=== PATIENT | female | born 1945 | race Caucasian/White ===

== ENCOUNTER 2017-11-21 08:48 | Day surgery (SDC) | payer MEDICARE ==
[2017-11-19 10:54] VITALS: BMI 31.6
--- NOTE | 2017-11-21 04:53 | P.GSHP ---
History of Present Illness H&P Date: 11/21/17 CHIEF COMPLAINT: Colon screen HISTORY OF PRESENT ILLNESS: The patient is a 72-year-old female who presents for colon screen. Lower endoscopy was offered for further evaluation and management. PAST MEDICAL HISTORY: Please see list. PAST SURGICAL HISTORY: Please see list. MEDICATIONS: Please see list. ALLERGIES: Please see list. SOCIAL HISTORY: No illicit drug use FAMILY HISTORY: No reports of Crohn disease or ulcerative colitis. REVIEW OF ORGAN SYSTEMS: CONSTITUTIONAL: No reports of fevers or chills. PHYSICAL EXAM: VITAL SIGNS: Stable GENERAL: Well-developed pleasant in no acute distress. HEENT: No scleral icterus. Extraocular movements grossly intact. Moist buccal mucosa. NECK: Supple without lymphadenopathy. CHEST: Unlabored respirations. Equal bilateral excursions. CARDIOVASCULAR: Regular rate and rhythm. Distal 2+ pulses. ABDOMEN: Soft, nontender, nondistended. MUSCULOSKELETAL: No clubbing, cyanosis, or edema. ASSESSMENT: 1. Colon screen. PLAN: 1. Recommend proceeding with a lower endoscopy Past Medical History Past Medical History: Eye Disorder, GERD/Reflux, Hyperlipidemia, Hypertension, Osteoarthritis (OA), Sleep Apnea/CPAP/BIPAP, Thyroid Disorder Additional Past Medical History / Comment(s): Hx Diverticulitis, CPAP use, right acoustic neuroma, low thyroid. Left cataract. History of Any Multi-Drug Resistant Organisms: None Reported Past Surgical History: Cholecystectomy, Hernia Repair, Orthopedic Surgery Additional Past Surgical History / Comment(s): Bilateral total knee and hip replacements, right cataract removal, colonoscopies with colon and anal polyp removal. Past Anesthesia/Blood Transfusion Reactions: Postoperative Nausea & Vomiting ( PONV) Past Psychological History: No Psychological Hx Reported Smoking Status: Never smoker Past Alcohol Use History: Occasional Past Drug Use History: None Reported - Past Family History Mother Family Medical History: Cancer Additional Family Medical History / Comment(s): Cervical and liver cancer. Medications and Allergies Home Medications Medication Instructions Recorded Confirmed Type Lisinopril [Zestril] 10 mg PO HS 10/26/13 11/19/17 History Metoprolol Succinate (ER) [Toprol 25 mg PO QAM 10/26/13 11/19/17 History XL] B Active 1 tab PO DAILY 11/19/17 11/19/17 History Cholecalciferol (Vitamin D3) 2,000 unit PO DAILY 11/19/17 11/19/17 History [Vitamin D3] Ginkgo Biloba (Unknown Dose) 1 tab PO DAILY 11/19/17 11/19/17 History Omeprazole 20 mg PO DAILY PRN 11/19/17 11/19/17 History Allergies Allergy/AdvReac Type Severity Reaction Status Date / Time No Known Allergies Allergy Verified 11/19/17 10:36
[~2017-11-21 08:48] MED LIST: LACTATED RINGERS 1,000 ML IV SCH; LIDOCAINE 1% 20 ML VIAL (10MG/ML) FOR IV START INTRADERMA PRN; MIDAZOLAM 2 MG/2 ML VIAL IV PRN
[2017-11-21 11:31] VITALS: TEMP 97.7
[2017-11-21] MEDS ORDERED: PROPOFOL 10 MG/ML 20 ML VIAL IV ONE (12:16)
--- NOTE | 2017-11-21 12:47 | P.PCN ---
Date of Procedure: 11/21/17 Description of Procedure: PREOPERATIVE DIAGNOSIS: Colonoscopy screening. Personal history of colon polyps. POSTOPERATIVE DIAGNOSIS: Colonoscopy screening. Personal history of colon polyps. Sigmoid colon polyp External hemorrhoids, grade 2. OPERATION: Colonoscopy to the ileocecal valve and appendiceal orifice. Colonoscopy with cold forceps biopsies. SURGEON: Jackeline Griffiths MD. ANESTHESIA: MAC. INDICATIONS: The patient is a 72-year-old female who presents for colonoscopy screening. Last colonoscopy was 5 years ago. Benefits and risks were described and informed consent was obtained. DESCRIPTION OF PROCEDURE: The patient had undergone Gatorade, MiraLAX and Dulcolax prep. She had been brought into the operating room and laid in the left lateral decubitus position. After adequate intravenous sedation, the rectum was examined with 2% lidocaine jelly. No external hemorrhoids were encountered. The rectal tone was within normal limits. No lesions were palpated in the rectal vault. An Olympus colonoscope was advanced until the ileocecal valve and appendiceal orifice were clearly viewed. The prep was fair with visualization of the mucosal folds. The scope was removed with visualization of each mucosal fold. No large wide- mouth scattered diverticulosis was encountered. No evidence of focal colitis was found. The colon was desufflated. The patient had tolerated the procedure well. Withdrawal time was over 6 minutes. FINDINGS: No internal hemorrhoids No external hemorrhoids No arteriovenous malformations. No large wide-mouth scattered diverticulosis was encountered. Removal of 1 polyp: - Cold forceps biopsy at 20 cm from the anal verge, 3 mm polyp. No focal colitis. RECOMMENDATIONS: Repeat colonoscopy 5 years, 2022 Plan - Discharge Summary New Discharge Prescriptions: No Action Metoprolol Succinate (ER) [Toprol XL] 25 mg PO QAM Lisinopril [Zestril] 10 mg PO HS Omeprazole 20 mg PO DAILY PRN PRN Reason: Indigestion Ginkgo Biloba (Unknown Dose) 1 tab PO DAILY Cholecalciferol (Vitamin D3) [Vitamin D3] 2,000 unit PO DAILY B Active 1 tab PO DAILY Discharge Medication List Lisinopril [Zestril] 10 mg PO HS 10/26/13 [History] Metoprolol Succinate (ER) [Toprol XL] 25 mg PO QAM 10/26/13 [History] B Active 1 tab PO DAILY 11/19/17 [History] Cholecalciferol (Vitamin D3) [Vitamin D3] 2,000 unit PO DAILY 11/19/17 [History] Ginkgo Biloba (Unknown Dose) 1 tab PO DAILY 11/19/17 [History] Omeprazole 20 mg PO DAILY PRN 11/19/17 [History]
[2017-11-21 12:56] VITALS: RESP 16
[2017-11-21 13:06] VITALS: BP 130/80; PULSE 63
--- NOTE | 2017-11-23 06:02 | CDI ---
Date: 11/23/17 CDS/Strategic Consultant Name: Samantha Varghese Phone: If any questions, call Amira Westbrook Marketing Services Specialist at [phone] Patient Name: Chichi Mullins Admit Date: 11/21/17 Discharge Date: 11/21/17 ATTENTION: The [facility] Coding Staff appreciate your assistance in clarifying documentation. Please respond to the clarification below the line at the bottom and electronically sign. The [facility] Coding staff will review the response and follow-up if needed. Please note: Queries are made part of the Legal Health Record. If you have any questions, please contact the Marketing Services Specialist. Dear Dr. Griffiths, Please provide clarification for diagnosis of external hemorrhoids. Please clarify there were in fact external hemorroids found. On the Operative report under Postoperative Diagnosis, External hemorrhoids, grade 2 is documented. Then on the Operative report under Description of Procedure and also Findings at the bottom of the report, NO external hemorrhoids is documented. Thank you for your kind consideration. Note has been corrected to reflect NO external hemorrhoids. Thank you. VIANNEY 11/23/17 @ 13:36 ROXI
== END 2017-11-21 13:24 | disposition home or self-care (01) ==
LOC: ORWHC2ENDO 08:48
PROVIDERS: ATTEND Surgery Plastic and Reconstructive Surgery
DX: Z12.11 Encounter for screening for malignant neoplasm of colon (principal); K63.5 Polyp of colon; Z86.010 Personal history of colon polyps; K21.9 Gastro-esophageal reflux disease without esophagitis; E78.5 Hyperlipidemia, unspecified; I10 Essential (primary) hypertension; M19.90 Unspecified osteoarthritis, unspecified site; D33.3 Benign neoplasm of cranial nerves; G47.33 Obstructive sleep apnea (adult) (pediatric); Z99.89 Dependence on other enabling machines and devices; E07.9 Disorder of thyroid, unspecified
CPT/HCPCS: 88305; 45380; J2704

== ENCOUNTER → 2018-02-21 | Outpatient (CLI) | payer MEDICARE ==
--- NOTE | 2018-02-21 20:02 | CONS ---
CONSULTATION DATE OF SERVICE: 02/21/2018 This patient is a 72-year-old lady who has been evaluated in the sleep center for obstructive sleep apnea-hypopnea syndrome. HISTORY OF PRESENT ILLNESS/SLEEP-WAKE EVALUATION: Patient was diagnosed with obstructive sleep apnea more than 10 years ago. Since that time she has been on treatment with CPAP every night for the whole night. Her sleep schedule is usually from around 11 p.m. until 7 or 8 a.m. Sometimes she has problems with falling asleep, although no TV in bedroom. She sleeps usually on the side position. Even while on treatment with CPAP, she has snoring and wakes up from sleep up to 5 times with 3 episodes of nocturia. She may take several rest periods during the day. [place] Sleepiness Scale is 6. PAST MEDICAL HISTORY: 1. Hypertension. 2. Acid reflux. 3. Hyperlipidemia. PAST SURGICAL HISTORY: 1. Bilateral hip replacement. 2. Bilateral knee replacement. 3. Cholecystectomy. 4. Hernia repair. MEDICATIONS: 1. Lisinopril. 2. Metoprolol. 3. Omeprazole. SOCIAL HISTORY: Negative for smoking. Alcohol consumption occasional. FAMILY HISTORY: Hypertension, heart problems, hyperlipidemia, stroke, arthritis, snoring, cancer, liver problems, acid reflux. REVIEW OF SYSTEMS: Multiple awakenings from sleep, sometimes tiredness and sleepiness during the day. PHYSICAL EXAMINATION: GENERAL A pleasant lady without distress. VITAL SIGNS: BP 161/90, HR 66, RR 18, height 5 feet 5-1/4 inches, weight 203.2, body mass index 33.5, temperature 98.1, oxygen saturation at room air 96%. HEENT: PERRLA, EOMI. Evaluation of oropharynx showed tongue protrudes midline; low position of soft palate. Nose slightly asymmetric. Slight restriction of nasal breathing. NECK: Supple. No JVD. Thyroid is not palpable. Neck measures inches in circumference. LUNGS: Clear to percussion and to auscultation. Good air exchange. No wheezing or rhonchi. HEART: S1, S2 regular. Short systolic murmur, aorta. ABDOMEN: Obese. EXTREMITIES : No clubbing or cyanosis. PAINT SPRAY INSPECTOR: Awake, alert, and oriented X3. Cranial nerves 2 to 7 intact. There is no fasciculation or atrophy. noted. No focal deficits observed. IMPRESSION: 1. Obstructive sleep apnea-hypopnea syndrome for more than 10 years. Patient continues to use her CPAP equipment but continues snoring with the machine and has awakenings from sleep at the present time. The machine is more than 5 years old. 2. Obesity. 3. Hypertension. 4. Acid reflux. 5. Hyperlipidemia. 6. Status post bilateral hip replacement. 7. Status post bilateral knee replacement. 8. Status post cholecystectomy. 9. Status post hernia repair. PLAN: 1. Repeat CPAP titration for re-evaluation of effective CPAP pressure at the present time. 2. Patient should get new CPAP supplies, including new CPAP mask, after titration. 3. We will get results of previous sleep studies. 4. Losing weight. 5. Sleep hygiene with regular time in bed for at least 8 hours. 6. No driving if feeling any sleepiness. Thank you very much for referring this patient for consultation. Sincerely, Arash Brady MD, PhD, FAASM Diplomat of [place] [employer] [place] [employer] Manager [employer] of [facility] [place] MMODL / IJN: [id number] /
== END | disposition home or self-care (01) ==
LOC: SLEEP 14:23
PROVIDERS: ATTEND Internal Medicine
DX: G47.33 Obstructive sleep apnea (adult) (pediatric) (principal); E66.9 Obesity, unspecified; I10 Essential (primary) hypertension; K21.9 Gastro-esophageal reflux disease without esophagitis; E78.5 Hyperlipidemia, unspecified; Z96.643 Presence of artificial hip joint, bilateral; Z96.653 Presence of artificial knee joint, bilateral; Z90.49 Acquired absence of other specified parts of digestive tract; Z98.890 Other specified postprocedural states; Z79.899 Other long term (current) drug therapy; Z99.89 Dependence on other enabling machines and devices
CPT/HCPCS: 99211

== ENCOUNTER → 2018-10-24 | Outpatient (CLI) | payer MEDICARE ==
--- NOTE | 2018-10-24 16:04 | PN ---
PROGRESS NOTE DATE OF SERVICE: 10/24/2018 This patient is a 73-year-old lady who has been followed in Sleep Center for treatment of obstructive sleep apnea-hypopnea syndrome. Patient has continued to use her CPAP equipment every night for the whole night but recently developed more problems related to the machine. She wakes up with a dry mouth from sleep and sometimes feels sleepiness during the day. [place] Sleepiness Scale is 7. She wakes up from sleep up to 5 times with 3 episodes of nocturia. MEDICATIONS: 1. Lisinopril. 2. Metoprolol. 3. Omeprazole. PHYSICAL EXAMINATION: GENERAL: A pleasant patient in no distress. VITAL SIGNS: BP 131/72, HR 68, RR 16, height 5 feet 5 inches, weight 201.4 pounds, body mass index 33.4, temperature 98.1, oxygen saturation at room air 94%. HEENT: PERRLA, EOMI. Evaluation of oropharynx showed tongue protrudes midline. Low position of soft palate. NECK: Supple. No JVD. Thyroid is not palpable. LUNGS: Clear to percussion and to auscultation. Good air exchange. No wheezing or rhonchi. HEART: S1, S2 regular. No murmurs, gallops or rubs. ABDOMEN: Soft and nontender. Bowel sounds are present. No organomegaly. EXTREMITIES: No clubbing or cyanosis. HEAD MVA REACTOR OPERATOR: Awake, alert, and oriented X3. Cranial nerves 2 to 7 intact. There is no fasciculation or atrophy. noted. No focal deficits observed. IMPRESSION: 1. Obstructive sleep apnea-hypopnea syndrome. The patient has continued to use her CPAP equipment but has awakenings from sleep with snoring and dryness in the mouth. Her CPAP unit is more than 5 years old. 2. Obesity. 3. Hypertension. 4. Acid reflux. 5. Hyperlipidemia. 6. Patient recently was diagnosed with allergies. 7. Status post bilateral hip replacement. 8. Status post bilateral knee replacement. 9. Status post cholecystectomy. 10.Status post hernia repair. PLAN: 1. Repeat CPAP titration for reevaluation of effective CPAP pressure at the present time, to check fitting with mask during titration. 2. Patient will get a new CPAP unit and all necessary CPAP supplies. 3. Losing weight. 4. Sleep hygiene with regular time in bed for at least 8 hours. 5. No driving if feeling any sleepiness. Thank you very much for allowing me to participate in the management of your patient. Sincerely, Arash Brady MD, PhD, FAASM Diplomat of [place] [employer] [place] [employer] Business Attorney of [facility] [place] JAVID / SHERYL: [id number] /
== END ==
LOC: SLEEP 14:01
PROVIDERS: ATTEND Internal Medicine
DX: G47.33 Obstructive sleep apnea (adult) (pediatric) (principal); E66.9 Obesity, unspecified; I10 Essential (primary) hypertension; K21.9 Gastro-esophageal reflux disease without esophagitis; E78.5 Hyperlipidemia, unspecified; Z96.643 Presence of artificial hip joint, bilateral; Z96.653 Presence of artificial knee joint, bilateral; Z90.49 Acquired absence of other specified parts of digestive tract; Z98.890 Other specified postprocedural states; Z99.89 Dependence on other enabling machines and devices; Z79.899 Other long term (current) drug therapy; Z68.33 Body mass index [BMI] 33.0-33.9, adult

== ENCOUNTER 2018-11-13 12:48 | Observation (INO) | payer MEDICARE ==
[2018-11-13] MEDS ORDERED: SODIUM CHLORIDE 0.9% 500 ML 500 ML IV STA (13:15)
--- NOTE | 2018-11-13 13:19 | ED ---
General Adult HPI - General Source: patient, RN notes reviewed Mode of arrival: wheelchair Limitations: no limitations <Yusef Alva - Last Filed: 11/13/18 16:19> <Adrian Garcia - Last Filed: 11/13/18 17:12> - General Chief complaint: Recheck/Abnormal Lab/Rx Stated complaint: elevated BP Time Seen by Provider: 11/13/18 13:04 - History of Present Illness Initial comments: 73-year-old female presents to the emergency department for a chief complaint of hypertension. Patient states that today she started to feel somewhat short of breath and felt like she was sweating. She felt shaky as well. States she just didn't feel good overall. Denies any chest pain. States that she checked her blood pressure and it was 200/114. States that with her symptoms she became concerned and came to the emergency department. States that she feels somewhat better at this time but does still feel shaky. States that she did not have any chest pain at this time. States that she did see her doctor on Sunday and they are increasing her blood pressure medications but she has male orders so has not come in the mail yet. States she is also to have a stress test because she has more PVCs than normal. Patient has no other complaints at this time including shortness of breath, abdominal pain, nausea or vomiting, headache, or visual changes. (Yusef Alva) - Related Data Home Medications Medication Instructions Recorded Confirmed Metoprolol Succinate (ER) [Toprol 25 mg PO QAM 10/26/13 11/13/18 XL] B Active 1 tab PO DAILY 11/19/17 11/13/18 Cholecalciferol (Vitamin D3) 2,000 unit PO DAILY 11/19/17 11/13/18 [Vitamin D3] Ginkgo Biloba (Unknown Dose) 1 tab PO DAILY 11/19/17 11/13/18 Omeprazole 20 mg PO DAILY PRN 11/19/17 11/13/18 Alkolizing Goat Whey 1 cap PO DAILY 11/13/18 11/13/18 Ascorbic Acid [Vitamin C] 1,000 mg PO DAILY 11/13/18 11/13/18 Docusate [Colace] 100 mg PO DAILY 11/13/18 11/13/18 Lisinopril [Zestril] 20 mg PO DAILY 11/13/18 11/13/18 Zinc 50 mg PO DAILY 11/13/18 11/13/18 Allergies Allergy/AdvReac Type Severity Reaction Status Date / Time acetaminophen [From Lortab] Allergy Nausea & Verified 11/13/18 13:05 Vomiting hydrocodone [From Lortab] Allergy Nausea & Verified 11/13/18 13:05 Vomiting Review of Systems ROS Other: All systems not noted in ROS Statement are negative. <Yusef Alva - Last Filed: 11/13/18 16:19> ROS Other: All systems not noted in ROS Statement are negative. <Adrian Garcia - Last Filed: 11/13/18 17:12> ROS Statement: Those systems with pertinent positive or pertinent negative responses have been documented in the HPI. Past Medical History Past Medical History: Eye Disorder, GERD/Reflux, Hyperlipidemia, Hypertension, Osteoarthritis (OA), Sleep Apnea/CPAP/BIPAP, Thyroid Disorder Additional Past Medical History / Comment(s): Hx Diverticulitis, CPAP use, right acoustic neuroma, low thyroid. Left cataract. History of Any Multi-Drug Resistant Organisms: None Reported Past Surgical History: Cholecystectomy, Hernia Repair, Orthopedic Surgery Additional Past Surgical History / Comment(s): Bilateral total knee and hip replacements, right cataract removal, colonoscopies with colon and anal polyp removal. Past Anesthesia/Blood Transfusion Reactions: Postoperative Nausea & Vomiting (PONV) Past Psychological History: No Psychological Hx Reported Smoking Status: Never smoker Past Alcohol Use History: Occasional Past Drug Use History: None Reported - Past Family History Mother Family Medical History: Cancer Additional Family Medical History / Comment(s): Cervical and liver cancer. <Yusef Alva - Last Filed: 11/13/18 16:19> General Exam Limitations: no limitations General appearance: alert, in no apparent distress Head exam: Present: atraumatic, normocephalic, normal inspection Eye exam: Present: normal appearance, PERRL, EOMI. Absent: scleral icterus, conjunctival injection, periorbital swelling ENT exam: Present: normal exam, normal oropharynx, mucous membranes moist, normal external ear exam Neck exam: Present: normal inspection, full ROM. Absent: tenderness, meningismus, lymphadenopathy Respiratory exam: Present: normal lung sounds bilaterally. Absent: respiratory distress, wheezes, rales, rhonchi, stridor Cardiovascular Exam: Present: regular rate, normal rhythm, normal heart sounds. Absent: systolic murmur, diastolic murmur, rubs, gallop, clicks Neurological exam: Present: alert, oriented X3, CN II-XII intact Psychiatric exam: Present: normal affect, normal mood <Yusef Alva - Last Filed: 11/13/18 16:19> Course <Adrian Garcia - Last Filed: 11/13/18 17:12> Vital Signs 11/13/18 11/13/18 11/13/18 12:50 13:42 13:50 Temperature 98.6 F Pulse Rate 66 67 68 Respiratory 18 11 L 18 Rate Blood Pressure 171/81 127/66 O2 Sat by Pulse 95 94 L 93 L Oximetry 11/13/18 11/13/18 11/13/18 14:00 14:10 14:20 Temperature Pulse Rate 68 Respiratory 20 Rate Blood Pressure 127/66 127/66 127/66 O2 Sat by Pulse Oximetry 11/13/18 11/13/18 14:30 15:07 Temperature 97.4 F L Pulse Rate 70 70 Respiratory 18 16 Rate Blood Pressure 127/66 120/69 O2 Sat by Pulse 96 100 Oximetry - Reevaluation(s) Reevaluation #1: 11/13/18 16:37 PA supervision: I pursued a [id number] evaluation the patient did discuss the findings with her. Patient did have a 20 minute episode today of shortness of breath and diaphoresis and shaking. This is since resolved blood pressure had been elevated 200/114 no chest pain this time patient will be admitted for evaluation she does have a stress test scheduled for soon outpatient. I do agree with the assessment and plan patient will be admitted to Dr. Juarez from Dr. Hidalgo's service this is at the patient's request (Adrian Garcia) EKG Findings - EKG Comments: EKG Findings:: Sinus rhythm with occasional PVC, ventricular rate 66, MA interval 196, QTc 413, no evidence of ST elevation or depression <Yusef Alva - Last Filed: 11/13/18 16:19> Medical Decision Making - Lab Data Result diagrams: 11/13/18 13:38 11/13/18 13:38 <Yusef Alva P - Last Filed: 11/13/18 16:19> - Lab Data Result diagrams: 11/13/18 13:38 11/13/18 13:38 <Adrian Garcia - Last Filed: 11/13/18 17:12> - Medical Decision Making 73-year-old female presents for a chief complaint of hypertension. Patient states she checked her blood pressure and it was 200/114. States that she checked this because she started to feel shaky and short of breath. States that she felt like she was diaphoretic as well. States that she is supposed to be scheduled for a stress test as she has had frequent PVCs. On exam patient is well-appearing. The symptoms have resolved somewhat. CBC and CMP are unremarkable. Troponin is negative. EKG does show sinus rhythm with occasional unifocal PVCs. Chest x-ray shows chronic changes without acute pulmonary process. At this time given the patient's symptoms as well as frequent PVCs she will be admitted for cardiology consultation. (Yusef Alva) - Lab Data Lab Results 11/13/18 11/13/18 11/13/18 Range/Units 13:38 13:38 13:38 WBC 4.2 (3.8-10.6) k/uL RBC 4.95 (3.80-5.40) m/uL Hgb 14.7 (11.4-16.0) gm/dL Hct 44.1 (34.0-46.0) % MCV 89.3 (80.0-100.0) fL MCH 29.6 (25.0-35.0) pg MCHC 33.2 (31.0-37.0) g/dL RDW 14.5 (11.5-15.5) % Plt Count 184 (150-450) k/uL Neutrophils % (Manual) 69 % Lymphocytes % (Manual) 23 % Monocytes % (Manual) 7 % Eosinophils % (Manual) 1 % Neutrophils # (Manual) 2.90 (1.3-7.7) k/uL Lymphocytes # (Manual) 0.97 L (1.0-4.8) k/uL Monocytes # (Manual) 0.29 (0-1.0) k/uL Eosinophils # (Manual) 0.04 (0-0.7) k/uL Nucleated RBCs 0 (0-0) /100 WBC Anisocytosis (manual) Present PT 9.6 (9.0-12.0) sec INR 0.9 (<1.2) APTT 25.2 (22.0-30.0) sec Sodium 137 (137-145) mmol/L Potassium 4.7 (3.5-5.1) mmol/L Chloride 106 (98-107) mmol/L Carbon Dioxide 23 (22-30) mmol/L Anion Gap 8 mmol/L BUN 15 (7-17) mg/dL Creatinine 0.45 L (0.52-1.04) mg/dL Est GFR (CKD-EPI)AfAm >90 (>60 ml/min/1.73 sqM) Est GFR (CKD-EPI)NonAf >90 (>60 ml/min/1.73 sqM) Glucose 88 (74-99) mg/dL Calcium 9.3 (8.4-10.2) mg/dL Magnesium 2.1 (1.6-2.3) mg/dL Total Bilirubin 0.6 (0.2-1.3) mg/dL AST 26 (14-36) U/L ALT 18 (9-52) U/L Alkaline Phosphatase 85 (38-126) U/L Troponin I (0.000-0.034) ng/mL NT-Pro-B Natriuret Pep pg/mL Total Protein 6.6 (6.3-8.2) g/dL Albumin 3.8 (3.5-5.0) g/dL Urine Color Urine Appearance (Clear) Urine pH (5.0-8.0) Ur Specific Wallace (1.001-1.035) Urine Protein (Negative) Urine Glucose (UA) (Negative) Urine Ketones (Negative) Urine Blood (Negative) Urine Nitrite (Negative) Urine Bilirubin (Negative) Urine Urobilinogen (<2.0) mg/dL Ur Leukocyte Esterase (Negative) Urine RBC (0-5) /hpf Urine WBC (0-5) /hpf Ur Squamous Epith Cells (0-4) /hpf Urine Bacteria (None) /hpf Urine Mucus (None) /hpf 11/13/18 11/13/18 11/13/18 Range/Units 13:38 13:38 14:15 WBC (3.8-10.6) k/uL RBC (3.80-5.40) m/uL Hgb (11.4-16.0) gm/dL Hct (34.0-46.0) % MCV (80.0-100.0) fL MCH (25.0-35.0) pg MCHC (31.0-37.0) g/dL RDW (11.5-15.5) % Plt Count (150-450) k/uL Neutrophils % (Manual) % Lymphocytes % (Manual) % Monocytes % (Manual) % Eosinophils % (Manual) % Neutrophils # (Manual) (1.3-7.7) k/uL Lymphocytes # (Manual) (1.0-4.8) k/uL Monocytes # (Manual) (0-1.0) k/uL Eosinophils # (Manual) (0-0.7) k/uL Nucleated RBCs (0-0) /100 WBC Anisocytosis (manual) PT (9.0-12.0) sec INR (<1.2) APTT (22.0-30.0) sec Sodium (137-145) mmol/L Potassium (3.5-5.1) mmol/L Chloride (98-107) mmol/L Carbon Dioxide (22-30) mmol/L Anion Gap mmol/L BUN (7-17) mg/dL Creatinine (0.52-1.04) mg/dL Est GFR (CKD-EPI)AfAm (>60 ml/min/1.73 sqM) Est GFR (CKD-EPI)NonAf (>60 ml/min/1.73 sqM) Glucose (74-99) mg/dL Calcium (8.4-10.2) mg/dL Magnesium (1.6-2.3) mg/dL Total Bilirubin (0.2-1.3) mg/dL AST (14-36) U/L ALT (9-52) U/L Alkaline Phosphatase (38-126) U/L Troponin I <0.012 (0.000-0.034) ng/mL NT-Pro-B Natriuret Pep 168 pg/mL Total Protein (6.3-8.2) g/dL Albumin (3.5-5.0) g/dL Urine Color Light Yellow Urine Appearance Clear (Clear) Urine pH 6.5 (5.0-8.0) Ur Specific Wallace 1.006 (1.001-1.035) Urine Protein Negative (Negative) Urine Glucose (UA) Negative (Negative) Urine Ketones Negative (Negative) Urine Blood Negative (Negative) Urine Nitrite Negative (Negative) Urine Bilirubin Negative (Negative) Urine Urobilinogen <2.0 (<2.0) mg/dL Ur Leukocyte Esterase Small H (Negative) Urine RBC <1 (0-5) /hpf Urine WBC 1 (0-5) /hpf Ur Squamous Epith Cells 1 (0-4) /hpf Urine Bacteria Rare H (None) /hpf Urine Mucus Rare H (None) /hpf Disposition Is patient prescribed a controlled substance at d/c from ED?: No Time of Disposition: 16:20 <Yusef Alva - Last Filed: 11/13/18 16:19> <Adrian Garcia - Last Filed: 11/13/18 17:12> Clinical Impression: PVCs (premature ventricular contractions), Diaphoresis Disposition: ADMITTED IP TO THIS HOSP Condition: Fair
--- NOTE | 2018-11-13 14:03 | XR ---
EXAMINATION TYPE: XR chest 2V DATE OF EXAM: 11/13/2018 COMPARISON: Chest x-ray October 26, 2013. HISTORY: Hypertension and chest pain. TECHNIQUE: Frontal and lateral views of the chest are obtained. FINDINGS: There is chronic parenchymal change without suspicious focal air space opacity, pleural ef fusion, or pneumothorax seen. The cardiac silhouette size remains within normal limits. Overlying EK G leads are redemonstrated. Cholecystectomy clips are redemonstrated. The osseous structures remain demineralized. Scoliotic curvature in lumbar spine is partially imaged. IMPRESSION: Chronic changes without acute pulmonary process. No significant change from prior.
[2018-11-13 14:20] LABS: ALT 18 U/L (9-52); AST 26 U/L (14-36); African American GFR (CKD) >90 (>60 ml/min/1.73 sqM); Albumin 3.8 g/dL (3.5-5.0); Alkaline Phosphatase 85 U/L (38-126); Anion Gap 8 mmol/L; Blood Urea Nitrogen 15 mg/dL (7-17); Calcium 9.3 mg/dL (8.4-10.2); Carbon Dioxide 23 mmol/L (22-30); Chloride 106 mmol/L (98-107); Glucose 88 mg/dL (74-99); Magnesium 2.1 mg/dL (1.6-2.3); Potassium 4.7 mmol/L (3.5-5.1); Sodium 137 mmol/L (137-145); Total Bilirubin 0.6 mg/dL (0.2-1.3); Total Protein 6.6 g/dL (6.3-8.2)
[2018-11-13 14:25] LABS: HCT 44.1 % (34.0-46.0); HGB 14.7 gm/dL (11.4-16.0); INR 0.9 (<1.2); MCH 29.6 pg (25.0-35.0); MCHC 33.2 g/dL (31.0-37.0); MCV 89.3 fL (80.0-100.0); Mean Platelet Volume 8.7; Partial Thromboplastin Time 25.2 sec (22.0-30.0); Platelet Count 184 k/uL (150-450); Prothrombin Time 9.6 sec (9.0-12.0); RBC 4.95 m/uL (3.80-5.40); RDW 14.5 % (11.5-15.5); WBC 4.2 k/uL (3.8-10.6)
[2018-11-13 14:27] LABS: Appearance,Urine Clear (Clear); Bacteria,Urine Rare /hpf; Bilirubin,Urine Negative (Negative); Blood,Urine Negative (Negative); Color,Urine Light Yellow; Glucose,Urine (UA) Negative (Negative); Ketones,Urine Negative (Negative); Leukocyte Esterase,Urine Small (Negative); Mucus,Urine Rare /hpf; Nitrite,Urine Negative (Negative); PH, Urine 6.5 (5.0-8.0); Protein,Urine Negative (Negative); RBC,Urine <1 /hpf (0-5); Specific Gravity,Urine 1.006 (1.001-1.035); Squamous Epithelial Cell,Urine 1 /hpf (0-4); Urobilinogen,Urine <2.0 mg/dL (<2.0); WBC,Urine 1 /hpf (0-5)
[2018-11-13 14:57] LABS: Eosinophils # (M) 0.04 k/uL (0-0.7); Lymphocytes # (M) 0.97 k/uL (1.0-4.8); Monocytes # (M) 0.29 k/uL (0-1.0); Neutrophils % (M) 69 %; Nucleated Red Blood Cells 0 /100 WBC (0-0); Total Cells Counted 100
[2018-11-13 14:58] LABS: Anisocytosis (M) Present
[2018-11-13] MEDS ORDERED: NITROGLYCERIN SL TABS 0.4 MG TAB SUBLINGUAL PRN (16:20)
[2018-11-13] MEDS ORDERED: PANTOPRAZOLE 40 MG TABLET PO PRN (16:24)
[2018-11-13] MEDS: LISINOPRIL 20 MG TAB PO SCH (20:05)
[2018-11-14 07:32] LABS: Cholesterol 194 mg/dL (<200); HDL Cholesterol 61 mg/dL (40-60); LDL Cholesterol,Calculated 120 mg/dL (0-99); Triglycerides 67 mg/dL (<150)
[2018-11-14] MEDS ORDERED: LISINOPRIL 20 MG TAB PO SCH (09:00)
[2018-11-14] MEDS: ASPIRIN 325 MG TAB PO SCH (11:53)
[2018-11-14] MEDS: DOCUSATE 100 MG CAP PO SCH (11:53)
--- NOTE | 2018-11-14 12:20 | P.CRDCN ---
History of Present Illness Consult date: 11/14/18 Chief complaint: Not feeling well History of present illness: This is a 73-year-old female patient with a past medical history significant for hypertension as well as dyslipidemia presented to the hospital complaining of "not feeling well". The patient denies any specific symptoms of chest pain or chest discomfort, denies any shortness of breath with exertion, dizziness, heart racing, or syncope. She stated that she has been feeling intermittent episodes of sweating and perspiration. Overall beside that she has been feeling weak and tired lately. She was seen recently by her primary care physician who was going to schedule the patient to undergo a stress test. A dermal 4 cup, the chest x- ray did not show any acute abnormalities, the cardiac enzymes were checked and came in to be unremarkable, and the EKG showed sinus rhythm without any ischemic ST or T-wave abnormalities. I did have a discussion with the patient regarding the need to perform a stress test and echocardiogram either as an inpatient or outpatient. She would like to stay and have the stress test to be done. I am going to schedule the patient was undergo an echocardiogram later on today and stress test tomorrow morning. We'll continue following up with her. Past Medical History Past Medical History: Eye Disorder, GERD/Reflux, Hyperlipidemia, Hypertension, Osteoarthritis (OA), Sleep Apnea/CPAP/BIPAP, Thyroid Disorder Additional Past Medical History / Comment(s): Hx Diverticulitis, CPAP use, right acoustic neuroma, low thyroid. right cataract sx. History of Any Multi-Drug Resistant Organisms: None Reported Past Surgical History: Cholecystectomy, Hernia Repair, Orthopedic Surgery Additional Past Surgical History / Comment(s): Bilateral total knee and hip replacements, right cataract removal, colonoscopies with colon and anal polyp removal. Past Anesthesia/Blood Transfusion Reactions: Postoperative Nausea & Vomiting (PONV) Past Psychological History: No Psychological Hx Reported Smoking Status: Never smoker Past Alcohol Use History: Occasional Past Drug Use History: None Reported - Past Family History Mother Family Medical History: Cancer Additional Family Medical History / Comment(s): Cervical and liver cancer. Medications and Allergies Home Medications Medication Instructions Recorded Confirmed Type Metoprolol Succinate (ER) [Toprol 25 mg PO QAM 10/26/13 11/13/18 History XL] B Active 1 tab PO DAILY 11/19/17 11/13/18 History Cholecalciferol (Vitamin D3) 2,000 unit PO DAILY 11/19/17 11/13/18 History [Vitamin D3] Ginkgo Biloba (Unknown Dose) 1 tab PO DAILY 11/19/17 11/13/18 History Omeprazole 20 mg PO DAILY PRN 11/19/17 11/13/18 History Alkolizing Goat Whey 1 cap PO DAILY 11/13/18 11/13/18 History Ascorbic Acid [Vitamin C] 1,000 mg PO DAILY 11/13/18 11/13/18 History Docusate [Colace] 100 mg PO DAILY 11/13/18 11/13/18 History Lisinopril [Zestril] 20 mg PO DAILY 11/13/18 11/13/18 History Zinc 50 mg PO DAILY 11/13/18 11/13/18 History Allergies Allergy/AdvReac Type Severity Reaction Status Date / Time acetaminophen [From Lortab] Allergy Nausea & Verified 11/13/18 13:05 Vomiting hydrocodone [From Lortab] Allergy Nausea & Verified 11/13/18 13:05 Vomiting Physical Exam Vitals: Vital Signs Temp Pulse Pulse Pulse Resp BP BP 11/14/18 12:00 97.6 F 66 16 136/71 11/14/18 08:00 97.5 F L 61 16 122/71 11/14/18 04:00 97.4 F L 58 L 16 143/70 11/14/18 03:20 16 11/13/18 23:24 98.4 F 61 16 122/71 11/13/18 23:02 18 11/13/18 20:00 18 11/13/18 18:22 71 18 11/13/18 18:06 98.1 F 71 18 128/81 11/13/18 15:07 97.4 F L 70 16 120/69 11/13/18 14:30 70 18 127/66 11/13/18 14:20 68 20 127/66 11/13/18 14:10 127/66 11/13/18 14:00 127/66 11/13/18 13:50 68 18 127/66 11/13/18 13:42 67 11 L 11/13/18 12:50 98.6 F 66 18 171/81 Pulse Ox 11/14/18 12:00 93 L 11/14/18 08:00 96 11/14/18 04:00 98 11/14/18 03:20 11/13/18 23:24 94 L 11/13/18 23:02 11/13/18 20:00 11/13/18 18:22 11/13/18 18:06 94 L 11/13/18 15:07 100 11/13/18 14:30 96 11/13/18 14:20 11/13/18 14:10 11/13/18 14:00 11/13/18 13:50 93 L 11/13/18 13:42 94 L 11/13/18 12:50 95 Intake and Output 11/13/18 11/14/18 11/14/18 22:59 06:59 14:59 Other: Voiding Method Toilet Toilet Toilet # Voids 1 - Constitutional General appearance: no acute distress - Respiratory Respiratory: bilateral: CTA - Cardiovascular Rhythm: regular Heart sounds: normal: S1, S2 Abnormal Heart Sounds: systolic murmur Results 11/13/18 13:38 11/13/18 13:38 Cardiac Enzymes 11/13/18 11/13/18 11/13/18 Range/Units 13:38 13:38 19:20 AST 26 (14-36) U/L Troponin I <0.012 <0.012 (0.000-0.034) ng/mL 11/14/18 Range/Units 01:19 AST (14-36) U/L Troponin I <0.012 (0.000-0.034) ng/mL Coagulation 11/13/18 Range/Units 13:38 PT 9.6 (9.0-12.0) sec APTT 25.2 (22.0-30.0) sec Lipids 11/14/18 Range/Units 07:01 Triglycerides 67 (<150) mg/dL Cholesterol 194 (<200) mg/dL HDL Cholesterol 61 H (40-60) mg/dL CBC 11/13/18 Range/Units 13:38 WBC 4.2 (3.8-10.6) k/uL RBC 4.95 (3.80-5.40) m/uL Hgb 14.7 (11.4-16.0) gm/dL Hct 44.1 (34.0-46.0) % Plt Count 184 (150-450) k/uL Comprehensive Metabolic Panel 11/13/18 Range/Units 13:38 Sodium 137 (137-145) mmol/L Potassium 4.7 (3.5-5.1) mmol/L Chloride 106 (98-107) mmol/L Carbon Dioxide 23 (22-30) mmol/L BUN 15 (7-17) mg/dL Creatinine 0.45 L (0.52-1.04) mg/dL Glucose 88 (74-99) mg/dL Calcium 9.3 (8.4-10.2) mg/dL AST 26 (14-36) U/L ALT 18 (9-52) U/L Alkaline Phosphatase 85 (38-126) U/L Total Protein 6.6 (6.3-8.2) g/dL Albumin 3.8 (3.5-5.0) g/dL Current Medications Generic Name Dose Route Start Last Admin Trade Name Freq PRN Reason Stop Dose Admin Aminophylline 100 mg 11/15/18 06:00 Aminophylline IV 11/16/18 06:01 ONCE PRN Patient Response Aspirin 325 mg 11/14/18 09:00 11/14/18 11:53 Aspirin PO Not Given DAILY FLORENCIA Caffeine Citrate 60 mg 11/15/18 06:00 Cafcit Inj IV 11/16/18 06:01 ONCE PRN Patient Response Docusate Sodium 100 mg 11/14/18 09:00 11/14/18 11:53 Colace PO 100 mg DAILY FLORENCIA Administration Dipyridamole 51.7 mg/ Sodium 60.34 mls @ 905.1 mls/hr 11/15/18 06:00 Chloride IV 11/15/18 06:03 ONCE ONE Lisinopril 20 mg 11/13/18 21:00 11/13/18 20:05 Zestril PO 20 mg HS FLORENCIA Administration Nitroglycerin 0.4 mg 11/13/18 16:20 Nitrostat SUBLINGUAL Q5M PRN Chest Pain Pantoprazole Sodium 40 mg 11/13/18 16:24 Protonix PO AC-[id number] PRN Indigestion Intake and Output 11/13/18 11/14/18 11/14/18 22:59 06:59 14:59 Other: Voiding Method Toilet Toilet Toilet # Voids 1 11/13/18 13:38 11/13/18 13:38 Assessment and Plan Assessment: Assessment #1 generalized weakness and fatigue #2 intermittent episodes of perspiration #3 hypertension #4 dyslipidemia #5 significant family history of CAD Plan #1 acute coronary event was ruled out #2 I did recommend proceeding with a stress test #3 I did recommend proceeding with an echocardiogram #4 follow-up with the patient Thank you for allowing us participate in her care
--- NOTE | 2018-11-14 13:34 | P.HPIM ---
History of Present Illness 68-year-old admitted mainly because of elevated blood pressure patient was a not feeling well was also complaining of headache and blood pressure was 200 systolic at home although doing well here. I believe her elevated blood pressu res secondary to abnormalities admission which she may need to by anyone. Patient has on any other nonspecific symptoms because of which cardiology evaluated the patient in the recommending stress test as an outpatient. I'll obtain a TSH because of her tiredness. Will monitor her blood pressure o vernight depending on her blood pressure here will decide on discharge regimen. Patient refuses nausea vomiting patient denied any chest pain chest x-ray did not show any significant abnormality troponins are negative EKG did not show any acute ST-T wave changes patient was comparing of diaphoresis as well. Diaphoresis although improved now Review of Systems REVIEW OF SYSTEMS: CONSTITUTIONAL: No fever HEENT: No recent visual problems or hearing problems. Denied any sore throat. CARDIOVASCULAR: No chest pain, orthopnea, PND, no palpitations, no syncope. PULMONARY: No shortness of breath, no cough, no hemoptysis. GASTROINTESTINAL: No diarrhea, no nausea, no vomiting, no abdominal pain. NEUROLOGICAL: No headaches, no weakness, no numbness. HEMATOLOGICAL: Denies any bleeding or petechiae. GENITOURINARY: Denies any burning micturition, frequency, or urgency. MUSCULOSKELETAL/RHEUMATOLOGICAL: Denies any joint pain, swelling, or any muscle pain. ENDOCRINE: Denies any polyuria or polydipsia. The rest of the 14-point review of systems is negative. Past Medical History Past Medical History: Eye Disorder, GERD/Reflux, Hyperlipidemia, Hypertension, Osteoarthritis (OA), Sleep Apnea/CPAP/BIPAP, Thyroid Disorder Additional Past Medical History / Comment(s): Hx Diverticulitis, CPAP use, right acoustic neuroma, low thyroid. right cataract sx. History of Any Multi-Drug Resistant Organisms: None Reported Past Surgical History: Cholecystectomy, Hernia Repair, Orthopedic Surgery Additional Past Surgical History / Comment(s): Bilateral total knee and hip replacements, right cataract removal, colonoscopies with colon and anal polyp removal. Past Anesthesia/Blood Transfusion Reactions: Postoperative Nausea & Vomiting (PONV) Past Psychological History: No Psychological Hx Reported Smoking Status: Never smoker Past Alcohol Use History: Occasional Past Drug Use History: None Reported - Past Family History Mother Family Medical History: Cancer Additional Family Medical History / Comment(s): Cervical and liver cancer. Medications and Allergies Home Medications Medication Instructions Recorded Confirmed Type Metoprolol Succinate (ER) [Toprol 25 mg PO QAM 10/26/13 11/13/18 History XL] B Active 1 tab PO DAILY 11/19/17 11/13/18 History Cholecalciferol (Vitamin D3) 2,000 unit PO DAILY 11/19/17 11/13/18 History [Vitamin D3] Ginkgo Biloba (Unknown Dose) 1 tab PO DAILY 11/19/17 11/13/18 History Omeprazole 20 mg PO DAILY PRN 11/19/17 11/13/18 History Alkolizing Goat Whey 1 cap PO DAILY 11/13/18 11/13/18 History Ascorbic Acid [Vitamin C] 1,000 mg PO DAILY 11/13/18 11/13/18 History Docusate [Colace] 100 mg PO DAILY 11/13/18 11/13/18 History Lisinopril [Zestril] 20 mg PO DAILY 11/13/18 11/13/18 History Zinc 50 mg PO DAILY 11/13/18 11/13/18 History Allergies Allergy/AdvReac Type Severity Reaction Status Date / Time acetaminophen [From Lortab] Allergy Nausea & Verified 11/13/18 13:05 Vomiting hydrocodone [From Lortab] Allergy Nausea & Verified 11/13/18 13:05 Vomiting Physical Exam Vitals: Vital Signs Temp Pulse Pulse Pulse Resp BP BP 11/14/18 12:00 97.6 F 66 16 136/71 11/14/18 08:00 97.5 F L 61 16 122/71 11/14/18 04:00 97.4 F L 58 L 16 143/70 11/14/18 03:20 16 11/13/18 23:24 98.4 F 61 16 122/71 11/13/18 23:02 18 11/13/18 20:00 18 11/13/18 18:22 71 18 11/13/18 18:06 98.1 F 71 18 128/81 11/13/18 15:07 97.4 F L 70 16 120/69 11/13/18 14:30 70 18 127/66 11/13/18 14:20 68 20 127/66 11/13/18 14:10 127/66 11/13/18 14:00 127/66 11/13/18 13:50 68 18 127/66 11/13/18 13:42 67 11 L Pulse Ox 11/14/18 12:00 93 L 11/14/18 08:00 96 11/14/18 04:00 98 11/14/18 03:20 11/13/18 23:24 94 L 11/13/18 23:02 11/13/18 20:00 11/13/18 18:22 11/13/18 18:06 94 L 11/13/18 15:07 100 11/13/18 14:30 96 11/13/18 14:20 11/13/18 14:10 11/13/18 14:00 11/13/18 13:50 93 L 11/13/18 13:42 94 L Intake and Output 11/13/18 11/14/18 11/14/18 22:59 06:59 14:59 Other: Voiding Method Toilet Toilet Toilet # Voids 1 PHYSICAL EXAMINATION: GENERAL: The patient is alert and oriented x3, not in any acute distress. Well developed, well nourished. HEENT: Pupils are round and equally reacting to light. EOMI. No scleral icterus. No conjunctival pallor. Normocephalic, atraumatic. No pharyngeal erythema. No thyromegaly. CARDIOVASCULAR: S1 and S2 present. No murmurs, rubs, or gallops. PULMONARY: Chest is clear to auscultation, no wheezing or crackles. ABDOMEN: Soft, nontender, nondistended, normoactive bowel sounds. No palpable organomegaly. MUSCULOSKELETAL: No joint swelling or deformity. EXTREMITIES: No cyanosis, clubbing, or pedal edema. NEUROLOGICAL: Gross neurological examination did not reveal any focal deficits. SKIN: No rashes. Results CBC & Chem 7: 11/13/18 13:38 11/13/18 13:38 Labs: Abnormal Lab Results - Last 24 Hours (Table) 11/13/18 11/13/18 11/13/18 Range/Units 13:38 13:38 14:15 Lymphocytes # (Manual) 0.97 L (1.0-4.8) k/uL Creatinine 0.45 L (0.52-1.04) mg/dL LDL Cholesterol, Calc (0-99) mg/dL HDL Cholesterol (40-60) mg/dL Ur Leukocyte Esterase Small H (Negative) Urine Bacteria Rare H (None) /hpf Urine Mucus Rare H (None) /hpf 11/14/18 Range/Units 07:01 Lymphocytes # (Manual) (1.0-4.8) k/uL Creatinine (0.52-1.04) mg/dL LDL Cholesterol, Calc 120 H (0-99) mg/dL HDL Cholesterol 61 H (40-60) mg/dL Ur Leukocyte Esterase (Negative) Urine Bacteria (None) /hpf Urine Mucus (None) /hpf Thrombosis Risk Factor Assmnt - Choose All That Apply Any of the Below Risk Factors Present?: Yes Each Factor Represents 1 point: Obesity (BMI >25) Other Risk Factors: Yes Each Risk Factor Represents 3 Points: Age 75 years or older Thrombosis Risk Factor Assessment Total Risk Factor Score: 4 Thrombosis Risk Factor Assessment Level: Moderate Risk Assessment and Plan Plan: -Generalized weakness and fatigue: Etiology is not clear will obtain TSH patient is undergoing stress test as per cardiology -PVCs on EKG -Hypertension blood pressure is well controlled here will not change the regimen I do not believe that we need to change her recommending on the blood pressures during this hospital physician patient to change her BP monitoring machine and counseling regarding appropriate way to check the blood pressure was provided as well. -Hyperlipidemia -Gastroesophageal reflux disease -Sleep apnea -Hypothyroidism For above-mentioned chronic medical problems patient will be resumed on appropriate home medications DVT prophylaxis is early ambulation
--- NOTE | 2018-11-14 19:18 | ECHOF ---
Referral Reason:sob MEASUREMENTS -------- HEIGHT: 165.1 cm WEIGHT: 90.7 kg BP: 136/71 IVSd: 1.0 cm (0.6 - 1.1) LVIDd: 4.0 cm (3.9 - 5.3) LVPWd: 1.0 cm (0.6 - 1.1) IVSs: 1.4 cm LVIDs: 1.9 cm LVPWs: 1.8 cm LAESV Index (A-L): 25.55 ml/m Ao Diam: 2.8 cm (2.0 - 3.7) AV Cusp: 1.8 cm (1.5 - 2.6) LA Diam: 3.8 cm (2.7 - 3.8) MV EXCURSION: 11.800 mm (> 18.000) MV EF SLOPE: 67 mm/s (70 - 150) EPSS: 0.4 cm MV E Figueroa: 0.99 m/s MV DecT: 212 ms MV A Figueroa: 0.93 m/s MV E/A Ratio: 1.06 RAP: 5.00 mmHg RVSP: 11.42 mmHg FINDINGS -------- Sinus rhythm. This was a technically difficult study with suboptimal views. The left ventricular size is normal. Left ventricular wall thickness is normal. Overall left vent ricular systolic function is normal with, an EF between 55 - 60 %. The right ventricle is normal in size. The left atrial size is normal. The right atrial size is normal. Lumason used Interatrial and interventricular septum intact. Aortic valve is trileaflet and is mildly thickened. The mitral valve leaflets are mildly thickened. Mild mitral regurgitation is present. Mild tricuspid regurgitation present. The right ventricular systolic pressure, as measured by Doppl er, is 11.42mmHg. There is no pulmonic regurgitation present. The aortic root size is normal. IVC Not well visulized. There is no pericardial effusion. CONCLUSIONS -------- 1. Sinus rhythm. 2. This was a technically difficult study with suboptimal views. 3. The left ventricular size is normal. 4. Left ventricular wall thickness is normal. 5. Overall left ventricular systolic function is normal with, an EF between 55 - 60 %. 6. The right ventricle is normal in size. 7. The left atrial size is normal. 8. The right atrial size is normal. 9. Lumason used 10. Interatrial and interventricular septum intact. 11. Aortic valve is trileaflet and is mildly thickened. 12. The mitral valve leaflets are mildly thickened. 13. Mild mitral regurgitation is present. 14. Mild tricuspid regurgitation present. 15. The right ventricular systolic pressure, as measured by Doppler, is 11.42mmHg. 16. There is no pulmonic regurgitation present. 17. The aortic root size is normal. 18. IVC Not well visulized. 19. There is no pericardial effusion. OPEN END SPINNING OPERATOR: Joanne Hooper RDCS
[2018-11-14] MEDS: LISINOPRIL 20 MG TAB PO SCH ×2 (20:20→20:24)
[2018-11-15] MEDS ORDERED: DIPYRIDAMOLE 51.7 MG in SODIUM CHLORIDE 0.9% 50 ML IV ONE (06:00)
[2018-11-15] MEDS ORDERED: CAFFEINE CITRATE 60 MG/3 ML VIAL IV PRN (06:00)
[2018-11-15] MEDS ORDERED: AMINOPHYLLINE 500 MG/20 ML VIAL IV PRN (06:00)
--- NOTE | 2018-11-15 08:15 | P.PN ---
Progress Note - Text Progress Note Date: 11/15/18 This is a pleasant 73-year-old female patient was admitted yesterday to the hospital with feeling tired and fatigued and has low energy. No discrete symptoms of chest pain or chest discomfort. I did recommend proceeding with a stress test which is going to happen this morning. We'll continue following up with the patient.
[2018-11-15] MEDS ORDERED: METOPROLOL SUCCINATE (ER) 25 MG TAB.ER.24H PO SCH (09:00)
--- NOTE | 2018-11-15 11:26 | EST ---
EXERCISE STRESS AGE: 73 SEX: F HT: 5'5" WT: 200 lbs. PROTOCOL: Persantine Cardiolite Study HEART RATE REST: 60 BLOOD PRESSURE REST: 152/75 MAXIMUM HEART RATE ACHIEVED: 83 MAXIMUM BLOOD PRESSURE: 130/69 85% MPHR: 123 100% MPHR: 145 INDICATIONS: Abnormal EKG. CLINICAL INFORMATION: STRESS DATA: Heart rate is 60, pressure is 152/75 mmHg. Baseline EKG showed sinus mechanism. The 51.7 mg of Persantine given in 60 seconds per protocol with max heart rate was 83 beats per minute. Maximum pressure was 130/69 mmHg. Clinically, the patient did not have any symptoms of chest pain or discomfort but she did deploy episodes of nonsustained of the episode of atrial tachycardia. CONCLUSION: 1. Nondiagnostic electrocardiogram stress testing response to Persantine. 2. Please follow up on the Cardiolite portion on separate report from the Radiology Department. MMODL / IJN: [id number] /
[2018-11-15] MEDS: ASPIRIN 325 MG TAB PO SCH (11:31)
[2018-11-15] MEDS: DOCUSATE 100 MG CAP PO SCH (11:32)
--- NOTE | 2018-11-15 11:36 | NM ---
EXAMINATION TYPE: NM stress persantine cardiolit DATE OF EXAM: 11/15/2018 COMPARISON: Previous dated 10/27/2013 HISTORY: Chest pain TECHNIQUE: After the intravenous administration of 10.4 mCi Tc 99m Sestamibi - Cardiolite resting SP ECT images acquired 45 minutes post injection. The patient received 51.7 mg Persantine, 24.4 mCi Tc 99m Sestamibi - Stress images obtained 35 minute s post injection FINDINGS: Review of stress and rest SPECT images demonstrates no distinct perfusion abnormality. Gated analysi s shows normal wall motion with an estimated left ventricular ejection fraction of 64 %. IMPRESSION: No scintigraphic evidence for reversible ischemia.
[2018-11-15 12:27] VITALS: BP 131/78; PULSE 58; RESP 16; TEMP 97.7
--- NOTE | 2018-11-15 14:00 | P.DS ---
Providers Date of admission: 11/13/18 16:21 Attending physician: Lakhwinder Franco Consults: 11/13/18 16:20 Consult Physician Routine Consulting Provider: [facility] Consult Reason/Comments: PVCs, diaphoresis Do you want consulting provider notified?: Yes Primary care physician: Jose Faria [facility] Course: 68-year-old admitted mainly because of elevated blood pressure patient was a not feeling well was also complaining of headache and blood pressure was 200 systolic at home although doing well here. I believe her elevated blood pressures secondary to abnormalities admission which she may need to by anyone. Patient has on any other nonspecific symptoms because of which cardiology evaluated the patient in the recommending stress test as an outpatient. I'll obtain a TSH because of her tiredness. Will monitor her blood pressure overnight depending on her blood pressure here will decide on discharge regimen. Patient refuses nausea vomiting patient denied any chest pain chest x- ray did not show any significant abnormality troponins are negative EKG did not show any acute ST-T wave changes patient was comparing of diaphoresis as well. Diaphoresis although improved now. 11/15/2018 Patient blood pressure is not elevated during this hospitalization in fact sometimes it's actually low ideally we may need to cut down the lisinopril dose. Patient may need to buy a new blood pressure monitoring device and patient underwent stress test if that's negative patient will be discharged today. PHYSICAL EXAMINATION: GENERAL: The patient is alert and oriented x3, not in any acute distress. Well developed, well nourished. HEENT: Pupils are round and equally reacting to light. EOMI. No scleral icterus. No conjunctival pallor. Normocephalic, atraumatic. No pharyngeal erythema. No thyromegaly. CARDIOVASCULAR: S1 and S2 present. No murmurs, rubs, or gallops. PULMONARY: Chest is clear to auscultation, no wheezing or crackles. ABDOMEN: Soft, nontender, nondistended, normoactive bowel sounds. No palpable organomegaly. MUSCULOSKELETAL: No joint swelling or deformity. EXTREMITIES: No cyanosis, clubbing, or pedal edema. NEUROLOGICAL: Gross neurological examination did not reveal any focal deficits. SKIN: No rashes. Please of her dementia dictation of H&P from yesterday for further details Patient Condition at Discharge: Fair Plan - Discharge Summary Discharge Rx Participant: No New Discharge Prescriptions: Continue Metoprolol Succinate (ER) [Toprol XL] 25 mg PO QAM Omeprazole 20 mg PO DAILY PRN PRN Reason: Indigestion Ginkgo Biloba (Unknown Dose) 1 tab PO DAILY Cholecalciferol (Vitamin D3) [Vitamin D3] 2,000 unit PO DAILY B Active 1 tab PO DAILY Docusate [Colace] 100 mg PO DAILY Ascorbic Acid [Vitamin C] 1,000 mg PO DAILY Zinc 50 mg PO DAILY Lisinopril [Zestril] 20 mg PO DAILY Alkolizing Goat Whey 1 cap PO DAILY Discharge Medication List Metoprolol Succinate (ER) [Toprol XL] 25 mg PO QAM 10/26/13 [History] B Active 1 tab PO DAILY 11/19/17 [History] Cholecalciferol (Vitamin D3) [Vitamin D3] 2,000 unit PO DAILY 11/19/17 [History] Ginkgo Biloba (Unknown Dose) 1 tab PO DAILY 11/19/17 [History] Omeprazole 20 mg PO DAILY PRN 11/19/17 [History] Alkolizing Goat Whey 1 cap PO DAILY 11/13/18 [History] Ascorbic Acid [Vitamin C] 1,000 mg PO DAILY 11/13/18 [History] Docusate [Colace] 100 mg PO DAILY 11/13/18 [History] Lisinopril [Zestril] 20 mg PO DAILY 11/13/18 [History] Zinc 50 mg PO DAILY 11/13/18 [History] Follow up Appointment(s)/Referral(s): José Luis Clay MD [STAFF PHYSICIAN] - 1 Week Jose Faria MD [Primary Care Provider] - 3 Days Patient Instructions/Handouts: Chest Pain (GEN) Discharge Disposition: HOME SELF-CARE
== END 2018-11-15 14:19 | disposition home or self-care (01) ==
LOC: EC 12:48 → 1SOBS 16:21
PROVIDERS: ADMIT Internal Medicine; ATTEND Internal Medicine
DX: I10 Essential (primary) hypertension (principal); R06.02 Shortness of breath; R53.83 Other fatigue; R53.1 Weakness; R61 Generalized hyperhidrosis; K21.9 Gastro-esophageal reflux disease without esophagitis; E78.5 Hyperlipidemia, unspecified; M19.90 Unspecified osteoarthritis, unspecified site; I49.3 Ventricular premature depolarization; G47.30 Sleep apnea, unspecified; Z99.89 Dependence on other enabling machines and devices; E03.9 Hypothyroidism, unspecified; D33.3 Benign neoplasm of cranial nerves; E66.9 Obesity, unspecified; Z68.33 Body mass index [BMI] 33.0-33.9, adult; Z79.899 Other long term (current) drug therapy; Z90.49 Acquired absence of other specified parts of digestive tract; Z87.19 Personal history of other diseases of the digestive system; Z86.010 Personal history of colon polyps; Z88.8 Allergy status to other drugs, medicaments and biological substances; Z80.8 Family history of malignant neoplasm of other organs or systems; Z80.0 Family history of malignant neoplasm of digestive organs; Z82.49 Family history of ischemic heart disease and other diseases of the circulatory system
CPT/HCPCS: 96360; 99284; 36415; 93005; 93017; 83880; 80061; 80053; 84443; 83735; 84484 ×2; 85025; 85610; 85730; 81001; 71046; 78452; G0378 ×3; C8929; A9500; Q9950; 93306

== ENCOUNTER → 2019-01-30 | Outpatient (CLI) | payer MEDICARE ==
--- NOTE | 2019-01-30 12:10 | SFUN ---
SLEEP CENTER FOLLOW UP NOTE DATE OF SERVICE: 01/30/2019 This 73-year-old lady who has been followed in sleep center for treatment of obstructive sleep apnea-hypopnea syndrome. Recently, patient had CPAP titration and after that received her new CPAP unit. She likes it very much. She is using it every night for the whole night without problems. Does not snore with the machine. No daytime sleepiness. [place] Sleepiness Scale is 6, which is normal. I checked your CPAP unit, range of the pressure 5 to 12, average pressure 8.4 cm of water. Leak is 14 L/minute, which is acceptable. Patient is using a nasal mask AirFit N20 medium size. Apnea-hypopnea index only 1.0, which is absolutely perfect. Sometimes patient feels that it is too much humidity in her mask. MEDICATIONS: Lisinopril, metoprolol, omeprazole. PHYSICAL EXAMINATION: During physical exam, patient in no distress. VITAL SIGNS: BP 153/88, HR 61, RR 16, weight 202.4, temperature 98.1, oxygen saturation at room air 93%. HEENT: PERRLA, EOMI. Oropharynx low position of soft palate, Mallampati 3-4. NECK: Supple, no JVD. Thyroid is not palpable. LUNGS: Clear to percussion and to auscultation. Good air exchange. No wheezing or rhonchi. HEART: S1, S2 regular. No murmurs, gallops, or rubs. ABDOMEN: Soft and nontender. Bowel sounds are present. No organomegaly appreciated. EXTREMITIES: No clubbing or cyanosis. FISHING GUIDE: Awake, alert, and oriented X3. Cranial nerves 2 to 7 intact. There is no fasciculation or atrophy. noted. No focal deficits observed. IMPRESSION: 1. Obstructive sleep apnea-hypopnea syndrome. Patient demonstrated 100% compliance with treatment benefitting from treatment. Average pressure in the range 8.5 cm of water. 2. Hypertension. 3. Acid reflux. 4. Hyperlipidemia. 5. Allergies. 6. Status post bilateral hip replacement. 7. Status post bilateral knee replacement. 8. Status post cholecystectomy. 9. Status post hernia repair. 10.No complaints of leg movements. 11.Periodic limb movements have been documented during the sleep study, but no clinical presentation of leg movements at the present time. PLAN: 1. Patient will continue to use CPAP equipment every night for the whole night. 2. Watching and losing weight. 3. Sleep hygiene with regular time in bed for at least 7-1/2 or 8 hours. 4. No driving if feeling sleepiness. 5. I will maintain all necessary prescriptions for the mask, tube, filters. 6. Follow-up visit in 1 year or earlier if patient has any problems. 7. I will teach patient how to adjust humidity in her CPAP unit. Thank you very much for allowing me to participate in management of your patient. Sincerely, Arash Brady MD, PhD, FAASM Diplomat of [place] [employer] [place] [employer] Head Cashier of [facility] [place] MMODL / IJN: [id number] /
== END | disposition home or self-care (01) ==

== ENCOUNTER → 2019-02-25 | Outpatient (CLI) | payer MEDICARE ==
[2019-02-25 14:11] VITALS: BP 135/76; PULSE 60; RESP 16; TEMP 98.2; BMI 31.0
--- NOTE | 2019-02-25 14:25 | P.HPOB ---
History of Present Illness H&P Date: 02/25/19 Chief Complaint: The patient is here for her routine gynecologic exam. This is a 73-year-old with an LMP of 1993. The patient is here to establish with this office. She states it has been about 5 years since her last pelvic exam. She is without gynecologic complaints and denies any postmenopausal bleeding. Review of Systems She is getting about 10 pounds over the last year. She denies respiratory, cardiac and G.I. problems. She denies maltreatment or problems with falling. : she has occasional slight urinary leakage, but this is not a big problem for her.. Past Medical History Past Medical History: Eye Disorder, GERD/Reflux, Hyperlipidemia, Hypertension, Osteoarthritis (OA), Sleep Apnea/CPAP/BIPAP, Thyroid Disorder Additional Past Medical History / Comment(s): Hx Diverticulitis, CPAP use, right acoustic neuroma, low thyroid. right cataract sx. Osteoporosis status post greater than 5 years use of Fosamax in the past. 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 History of Any Multi-Drug Resistant Organisms: None Reported Past Surgical History: Cholecystectomy, Hernia Repair, Orthopedic Surgery Additional Past Surgical History / Comment(s): Bilateral total knee and hip replacements, right cataract removal, colonoscopies with colon and anal polyp removal. Last colonoscopy 2017(next after 5yrs). Inguinal and umbilical hernia repairs. 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 She spends her sun in [place]. - Past Family History Mother Family Medical History: Cancer Additional Family Medical History / Comment(s): Cervical or uterine cancer with metastases to liver. Father Family Medical History: CVA/TIA, Myocardial Infarction ([place]) Brother(s) Family Medical History: Diabetes Mellitus Medications and Allergies Home Medications Medication Instructions Recorded Confirmed Type Metoprolol Succinate (ER) [Toprol 25 mg PO QAM 10/26/13 02/25/19 History XL] Cholecalciferol (Vitamin D3) 2,000 unit PO DAILY 11/19/17 02/25/19 History [Vitamin D3] Ginkgo Biloba (Unknown Dose) 1 tab PO DAILY 11/19/17 02/25/19 History Omeprazole 20 mg PO DAILY PRN 11/19/17 02/25/19 History Alkolizing Goat Whey 1 cap PO DAILY 11/13/18 02/25/19 History Ascorbic Acid [Vitamin C] 1,000 mg PO DAILY 11/13/18 02/25/19 History Docusate [Colace] 100 mg PO DAILY 11/13/18 02/25/19 History Lisinopril [Zestril] 20 mg PO DAILY 11/13/18 02/25/19 History Zinc 50 mg PO DAILY 11/13/18 11/13/18 History Allergies Allergy/AdvReac Type Severity Reaction Status Date / Time acetaminophen [From Lortab] Allergy Nausea & Verified 02/25/19 13:04 Vomiting hydrocodone [From Lortab] Allergy Nausea & Verified 02/25/19 13:04 Vomiting Exam Vital Signs Temp Pulse Resp BP 02/25/19 13:23 98.2 F 60 16 135/76 Height 5'5", weight 204 pounds, BMI 34. This is a well-developed well-nourished white female who is alert and oriented times 3 in no acute distress. HEENT: Within normal limits. NECK: Supple without mass or thyromegaly. CHEST AND LUNGS: Clear to auscultation. HEART: Regular rate and rhythm. BREASTS: Are without mass or discharge. AXILLARY EXAM: Negative for adenopathy. BACK: Negative for CVA tenderness. ABDOMEN: Soft, nontender, without palpable masses. PELVIC EXAM: Normal external genitalia with mild to moderate atrophy. Cervix and vagina appear normal with mild atrophy. There is no unusual discharge. There is a grade 2 cystocele which increases slightly with Valsalva. There is no significant rectocele or uterine prolapse. The uterus is midposition, nongravid size and nontender. There are no palpable adnexal masses or tenderness. RECTAL EXAM: rectovaginal exam is negative for mass or tenderness and is negative for occult blood. EXTREMITIES: Nontender. IMPRESSION: 1. 73-year-old menopausal female with a grade 2-3 cystocele which is asymptomatic. 2. History of osteoporosis status post greater than 5 years use of Fosamax. PLAN: 1. Pap smear was performed. Since she is a new patient, we will do Pap smears every 2 to 3 years until 3 normal ones have been obtained, then we will consider discontinuing Pap smear testing. 2. Self breast awareness was discussed with the patient. 3. The patient would like to do her screening mammogram at [facility]. The order slip was given to the patient for this. 4. Osteoporosis management was discussed. I have stressed the importance of adequate calcium, vitamin D and regular exercise. Recommended amounts of calcium and vitamin D were also discussed. She had a bone density test done earlier this spring. I have recommended that she repeat this in 2 to 3 years. 5. She does get flu shots in the fall. She will be getting one through Dr. Faria in the near future. 6. The patient was advised to return in 1-2 years for her well woman examination.
== END ==
LOC: WWCWWP 12:47
PROVIDERS: ATTEND Obstetrics & Gynecology
DX: Z53.9 Procedure and treatment not carried out, unspecified reason (principal)

== ENCOUNTER → 2020-01-29 | Outpatient (CLI) | payer MEDICARE ==
--- NOTE | 2020-01-29 11:46 | SFUN ---
SLEEP CENTER FOLLOW UP NOTE DATE OF SERVICE: 01/29/2020 HISTORY OF PRESENT ILLNESS: This is a 74-year-old lady has been followed in Sleep Center for treatment of obstructive sleep apnea-hypopnea syndrome. The patient successfully continues to use her CPAP equipment every night. Sleeps well. Sometimes she may open her mouth. [place] Sleepiness Scale today is 6. I checked her CPAP unit, range of the pressure 5-12, average pressure 8.4 cm of water. Usage is 30/30 nights for more than 4 hours with average usage 7.3 hours per night. Apnea-hypopnea index is 1.0, which is perfect. MEDICATIONS: Lisinopril, metoprolol, omeprazole, vitamin D, C, zinc. PHYSICAL EXAMINATION: GENERAL: A pleasant patient without any distress. VITAL SIGNS: BP 137/86, HR 65, RR 16, height 5 feet 5 1/2 inches, weight 203.4, which is about the same as 1 year ago. Temperature 98.1. Oxygen saturation on room air 94%. HEENT: PERRLA, EOMI. Oropharynx low position of soft palate, Mallampati 3-4. NECK: Supple, no JVD. Thyroid is not palpable. LUNGS: Clear to percussion and to auscultation. Good air exchange. No wheezing or rhonchi. HEART: S1, S2 regular. No murmurs, gallops, or rubs. ABDOMEN: Slightly obese. Soft and nontender. Bowel sounds are present. No organomegaly appreciated. EXTREMITIES: No clubbing or cyanosis. 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 Cranial nerves 2 to 7 intact. There is no fasciculation or atrophy. noted. No focal deficits observed. IMPRESSION: 1. Obstructive sleep apnea-hypopnea syndrome. The patient demonstrated 100% compliance with treatment benefitting from treatment. 2. Hypertension. 3. Hyperlipidemia. 4. Acid reflux. 5. Allergies. 6. Status post bilateral hip replacement. 7. Status post bilateral knee replacement. 8. Status post cholecystectomy. 9. Status post hernia repair. 10.History of periodic limb movements during the sleep study. No clinical symptoms of periodic limb movements presently. PLAN: PLAN 1. Patient will continue to use PAP equipment every night for the whole night. 2. Sleep hygiene with regular time in bed for at least 7-1/2 to 8 hours. 3. Precautions related to driving. No driving if feeling sleepiness. 4. I will maintain all necessary prescription for PAP supplies including mask, tube, filters. 5. Watching weight. 6. No driving if feeling sleepiness. 7. Follow-up visit in 6 months or earlier if patient has any problems. 8. Prescription for chin strap. Thank you very much for allowing me to participate in the management of your patient. Sincerely, Arash Brady MD, PhD, FAASM Diplomat of [place] [employer] Specialties [place] [employer] Medicine Automotive Specialty Technician of [facility] [place] MMODL / THORN: [id number] /
== END | disposition home or self-care (01) ==
LOC: SLEEP 09:57
PROVIDERS: ATTEND Internal Medicine
DX: G47.33 Obstructive sleep apnea (adult) (pediatric) (principal); I10 Essential (primary) hypertension; E78.5 Hyperlipidemia, unspecified; K21.9 Gastro-esophageal reflux disease without esophagitis; Z87.39 Personal history of other diseases of the musculoskeletal system and connective tissue; Z96.643 Presence of artificial hip joint, bilateral; Z96.653 Presence of artificial knee joint, bilateral; Z90.49 Acquired absence of other specified parts of digestive tract; Z98.890 Other specified postprocedural states; T78.40XA Allergy, unspecified, initial encounter; Z79.899 Other long term (current) drug therapy

== ENCOUNTER → 2020-02-12 | Outpatient (CLI) | payer MEDICARE ==
--- NOTE | 2020-02-12 16:11 | US ---
EXAMINATION TYPE: US thyroid st tissue head/neck DATE OF EXAM: 02/12/2020 COMPARISON: NONE CLINICAL HISTORY: 74-year-old female E07.9 Disorder of thyroid gland. TECHNIQUE: Multiple sonographic images of the thyroid gland are obtained. FINDINGS: GLAND SIZE: Right Lobe: 3.9 x 1.2 x 1.3 cm Overall Parenchyma: homogenous Left Lobe: 3.5 x 0.8 x 1.5 cm Overall Parenchyma: homogeneous Isthmus Thickness: 0.2 cm NODULES RIGHT: # of nodules measured on right: 0 LEFT: # of nodules measured on left: 0 ISTHMUS: # of nodules measured in the isthmus: 0 Bilateral neck scanned, no evidence of lymphadenopathy. IMPRESSION: Unremarkable ultrasound appearance of the thyroid gland. Homogeneous parenchyma. No discrete nodule.
== END | disposition home or self-care (01) ==
LOC: RADUSWWP 14:30
PROVIDERS: ATTEND Physician Assistant
DX: E07.9 Disorder of thyroid, unspecified (principal)
CPT/HCPCS: 76536

== ENCOUNTER → 2020-03-12 | Outpatient (CLI) | payer MEDICARE ==
--- NOTE | 2020-03-12 14:52 | MR ---
EXAMINATION TYPE: MR iac wo/w con DATE OF EXAM: 03/12/2020 COMPARISON: MRI brain January 26, 2014. HISTORY: Hx of acoustic neuroma, dizziness, right-sided hearing loss. TECHNIQUE: Multiplanar, multisequence images of the brain and brainstem is performed without and with IV contras t, utilizing 9 mL intravenous Gadavist . Acoustic nerve disorder protocol. FINDINGS: Diffusion weighted images demonstrate no evidence of a recent infarct or other diffusion ab normality. There is no worrisome or extra-axial fluid collection. Mild ventricular and sulcal promin ence. Occasional scattered focus of T2 hyperintensity throughout the white matter bilaterally redemon strated. Midline structures demonstrate normal morphology. The craniocervical junction appears within normal limits. Normal vascular flow voids are present. There is 1.5 cm mucous retention cyst or polyp in the inferior right maxillary sinus redemonstrated. Remainder paranasal sinuses are clear. Globes are int act bilaterally. No suspicious fluid signal in the mastoid air cells bilaterally. There is redemonstration of heteroge neous enhancing right cerebellopontine angle mass measuring 7 x 3 mm axial image 10 consistent with k nown acoustic neuroma. No significant change current study series 801 burst prior study image 12 seri es 801. IMPRESSION: Stable right-sided acoustic neuroma. Stable mild diffuse cerebral atrophy and chronic sma ll vessel ischemic changes. No significant change from 2014 MRI.
== END | disposition home or self-care (01) ==
LOC: RADMRIMAIN 13:48
PROVIDERS: ATTEND Internal Medicine
DX: D33.3 Benign neoplasm of cranial nerves (principal); G31.9 Degenerative disease of nervous system, unspecified; I67.82 Cerebral ischemia
CPT/HCPCS: 70553; A9585

== ENCOUNTER → 2020-10-28 | Outpatient (CLI) | payer MEDICARE ==
--- NOTE | 2020-10-28 23:47 | SFUN ---
SLEEP CENTER FOLLOW UP NOTE DATE OF SERVICE: 10/28/2020 This 75-year-old lady has been followed in Sleep Center for treatment of obstructive sleep apnea-hypopnea syndrome. The patient continues to use her CPAP equipment every night and does not snore with the machine. [place] Sleepiness Scale today is 8. I checked her CPAP unit. Range of the pressure is 5 to 12 with average pressure 9.8 cm of water, usage 29/30 nights for more than 4 hours, average 7.7 hours per night. Leak is 14 L/minute, which is acceptable. Apnea-hypopnea index is 0.9, which is perfect. CURRENT MEDICATIONS: 1. Lisinopril 20 mg once a day in the evening. 2. Metoprolol 25 mg once a day in the morning. 3. Omeprazole 20 mg once a day. PHYSICAL EXAMINATION: GENERAL: A pleasant patient in no distress. VITAL SIGNS: BP 189/82, HR 70, RR 12, height 5 feet 6 inches, weight 208, body mass index 33.5, temperature 97.8, oxygen saturation at room air 95%. HEENT: PERRLA, EOMI. Evaluation of oropharynx showed tongue protrudes midline. Low position of soft palate. Mallampati III to IV. NECK: Supple. No JVD. Thyroid is not palpable. LUNGS: Clear to percussion and to auscultation. Good air exchange. No wheezing or rhonchi. HEART: S1, S2 regular. No murmurs, gallops or rubs. ABDOMEN: Slightly obese. EXTREMITIES: No clubbing or cyanosis. ENLISTED AIRCREW/AERIAL OBSERVER/GUNNER: Awake, alert, and oriented X3. Cranial nerves 2 to 7 intact. There is no fasciculation or atrophy. noted. No focal deficits observed. Patient is walking with a cane. IMPRESSION: 1. Obstructive sleep apnea-hypopnea syndrome. Patient demonstrated practically 100% compliance with treatment. Normal aspiration on CPAP therapy. 2. Hypertension; blood pressure increased in the office today. No chest pain, headache or shortness of breath. 3. History obesity. Body mass index 33.5. 4. Hyperlipidemia. 5. Acid reflux. 6. Allergies. 7. Status post bilateral hip replacement. 8. Status post bilaterally knee replacement. 9. Status post cholecystectomy. 10.Status post hernia repair. 11.History of periodic limb movements during the sleep study, but no clinical symptoms. PLAN: 1. Patient was advised to monitor her blood pressure for several days and then to discuss it with her primary care physician during follow-up visit, which she will have soon. 2. Low-sodium diet. 3. Patient will continue to use PAP equipment every night for the whole night. 4. Sleep hygiene with regular time in bed for at least 7-1/2 to 8 hours. 5. Precautions related to driving. No driving if feeling sleepiness. 6. I will maintain all necessary prescription for PAP supplies including mask, tube, filters. 7. Watching weight. 8. Follow-up visit in 6 months or earlier if patient has any problems. Thank you very much for allowing me to participate in the management of your patient. Sincerely, Arash Brady MD, PhD, FAASM Diplomat of [place] [employer] [place] [employer] General Operator of [facility] [place] [id number] / THORN: [id number] /
== END ==
LOC: SLEEP 09:55
PROVIDERS: ATTEND Internal Medicine
DX: G47.33 Obstructive sleep apnea (adult) (pediatric) (principal); I10 Essential (primary) hypertension; E78.5 Hyperlipidemia, unspecified; K21.9 Gastro-esophageal reflux disease without esophagitis; E66.9 Obesity, unspecified; Z96.653 Presence of artificial knee joint, bilateral; Z96.643 Presence of artificial hip joint, bilateral; Z90.49 Acquired absence of other specified parts of digestive tract; Z98.890 Other specified postprocedural states; Z68.33 Body mass index [BMI] 33.0-33.9, adult; Z79.899 Other long term (current) drug therapy; Z88.6 Allergy status to analgesic agent

== ENCOUNTER 2021-01-12 17:10 | Observation (INO) | payer MEDICARE ==
[2021-01-12] MEDS ORDERED: SODIUM CHLORIDE 0.9% 500 ML 500 ML IV STA (17:34)
--- NOTE | 2021-01-12 17:41 | ED ---
Chest Pain HPI - General Chief Complaint: Chest Pain Stated Complaint: Chest pressure/high BP Source: patient, RN notes reviewed, old records reviewed Mode of arrival: wheelchair Limitations: no limitations - History of Present Illness Initial Comments: 75-year-old well-appearing white female, alert and oriented 4, presents to the emergency room with complaints of epigastric pain that radiates up into her chest into the bilateral posterior neck, 2 hours ago. Patient states that she was just reading a book when it occurred. She states that the pain also caused her to have a headache. She states that symptoms lasted about half an hour but resolved on its own. She states that she has no pain at this time. The last time she had this pain was epigastric in nature but it did not radiate to her neck which is why she came to the hospital. Patient denies any fevers, cough or shortness of breath at this time. No nausea or vomiting during this episode. MD Complaint: chest pain -: hour(s) (2) Onset: during rest (While reading) Pain Location: epigastric Pain Radiation: neck (both side posterior neck) Severity scale (1-10): 0 Consistency: now resolved Worsens With: nothing Treatments Prior to Arrival: none - Related Data Home Medications Medication Instructions Recorded Confirmed Metoprolol Succinate (ER) [Toprol 25 mg PO DAILY 10/26/13 01/12/21 XL] Cholecalciferol (Vitamin D3) 50 mcg PO DAILY 11/19/17 01/12/21 [Vitamin D3] Omeprazole 20 mg PO DAILY 11/19/17 01/12/21 Ascorbic Acid [Vitamin C] 1,000 mg PO DAILY 11/13/18 01/12/21 Docusate [Colace] 100 mg PO DAILY 11/13/18 01/12/21 Zinc 50 mg PO HS 11/13/18 01/12/21 lisinopriL [Zestril] 20 mg PO HS 11/13/18 01/12/21 Azelastine HCl 1 spray EA NOSTRIL BID 01/12/21 01/12/21 Cetirizine HCl 10 mg PO HS 01/12/21 01/12/21 Prevagen 1 cap PO DAILY 01/12/21 01/12/21 Allergies Allergy/AdvReac Type Severity Reaction Status Date / Time hydrocodone [From Lortab] AdvReac Nausea & Verified 01/12/21 18:29 Vomiting Review of Systems ROS Statement: Those systems with pertinent positive or pertinent negative responses have been documented in the HPI. ROS Other: All systems not noted in ROS Statement are negative. EKG Findings - EKG Results: EKG: sinus rhythm (Ventricular rate 61, FL interval 0.214, QRS of 0.88, QTc 0.404) Past Medical History Past Medical History: Eye Disorder, GERD/Reflux, Hyperlipidemia, Hypertension, Osteoarthritis (OA), Sleep Apnea/CPAP/BIPAP, Thyroid Disorder Additional Past Medical History / Comment(s): Hx Diverticulitis, CPAP use, right acoustic neuroma, low thyroid. right cataract sx. Osteoporosis status post greater than 5 years use of Fosamax in the past. 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 History of Any Multi-Drug Resistant Organisms: None Reported Past Surgical History: Cholecystectomy, Hernia Repair, Orthopedic Surgery Additional Past Surgical History / Comment(s): Bilateral total knee and hip replacements, right cataract removal, colonoscopies with colon and anal polyp removal. Last colonoscopy 2017(next after 5yrs). Inguinal and umbilical hernia repairs. Past Anesthesia/Blood Transfusion Reactions: Postoperative Nausea & Vomiting (PONV) Past Psychological History: No Psychological Hx Reported Smoking Status: Never smoker Past Alcohol Use History: Occasional Past Drug Use History: None Reported - Past Family History Mother Family Medical History: Cancer Additional Family Medical History / Comment(s): Cervical or uterine cancer with metastases to liver. Father Family Medical History: CVA/TIA, Myocardial Infarction ([place]) Brother(s) Family Medical History: Diabetes Mellitus General Exam Limitations: no limitations General appearance: alert, in no apparent distress Head exam: Present: atraumatic, normocephalic, normal inspection Eye exam: Present: normal appearance, PERRL, EOMI. Absent: scleral icterus, conjunctival injection, periorbital swelling, periorbital tenderness Pupils: Present: normal accommodation ENT exam: Present: normal exam, normal oropharynx, mucous membranes moist, normal external ear exam Neck exam: Present: normal inspection, full ROM. Absent: tenderness, menin gismus, lymphadenopathy, thyromegaly Expanded Neck exam: Absent: tenderness, anterior neck swelling, carotid bruit, tracheal deviation Respiratory exam: Present: normal lung sounds bilaterally. Absent: respiratory distress, wheezes, rales, rhonchi, stridor, chest wall tenderness, accessory muscle use, decreased breath sounds, prolonged expiratory Cardiovascular Exam: Present: regular rate, normal rhythm, normal heart sounds. Absent: systolic murmur, diastolic murmur, rubs, gallop, clicks, JVD GI/Abdominal exam: Present: soft, normal bowel sounds, hyperactive bowel sounds. Absent: distended, tenderness, guarding, rebound, rigid, mass, hernia Extremities exam: Present: normal inspection, full ROM, normal capillary refill, other (strong Pedal pulses equal bilaterally). Absent: tenderness, pedal edema, joint swelling, calf tenderness Back exam: Present: full ROM. Absent: tenderness, CVA tenderness (R), CVA tenderness (L), muscle spasm, paraspinal tenderness, vertebral tenderness Neurological exam: Present: alert, oriented X3, CN II-XII intact Psychiatric exam: Present: normal affect, normal mood Skin exam: Present: warm, dry, intact, normal color. Absent: rash Course Vital Signs 01/12/21 17:17 Temperature 98.1 F Pulse Rate 68 Respiratory 20 Rate Blood Pressure 169/89 O2 Sat by Pulse 94 L Oximetry Chest Pain MDM - MDM CXR shows normal Heart and Mediastinum, lungs are clear. No cardiopulmonary disease. EKG shows no ST elevation, troponin is negative at 0.012. Patient states that she does still feel some chest pressure at this time. This is similar chest pressure that she had earlier today at rest. SHe does deny headache at this time. Will admit patient for unstable angina. Case discussed with Dr. Patterson Disposition Clinical Impression: Unstable angina Disposition: ADMITTED IP TO THIS [facility] Condition: Fair Referrals: Marina Wakefield MD [Primary Care Provider] - 1-2 days Decision Date: 01/12/21 Decision Time: 19:30
[2021-01-12 17:58] LABS: HCT 40.8 % (34.0-46.0); HGB 14.1 gm/dL (11.4-16.0); MCH 31.8 pg (25.0-35.0); MCHC 34.5 g/dL (31.0-37.0); MCV 92.2 fL (80.0-100.0); Mean Platelet Volume 8.4; Platelet Count 203 k/uL (150-450); RBC 4.43 m/uL (3.80-5.40); RDW 13.3 % (11.5-15.5); WBC 4.5 k/uL (3.8-10.6)
[2021-01-12 18:06] LABS: INR 0.9 (<1.2); Partial Thromboplastin Time 23.3 sec (22.0-30.0); Prothrombin Time 9.5 sec (9.0-12.0)
[2021-01-12 18:12] LABS: ALT 18 U/L (4-34); AST 29 U/L (14-36); African American GFR (CKD) >90 (>60 ml/min/1.73 sqM); Albumin 3.5 g/dL (3.5-5.0); Alkaline Phosphatase 119 U/L (38-126); Anion Gap 5 mmol/L; Blood Urea Nitrogen 11 mg/dL (7-17); Calcium 8.9 mg/dL (8.4-10.2); Carbon Dioxide 22 mmol/L (22-30); Chloride 106 mmol/L (98-107); Glucose 95 mg/dL (74-99); Magnesium 2.1 mg/dL (1.6-2.3); Non-African American GFR(CKD) >90 (>60 ml/min/1.73 sqM); Potassium 4.2 mmol/L (3.5-5.1); Sodium 133 mmol/L (137-145); Total Bilirubin 0.2 mg/dL (0.2-1.3); Total Protein 6.2 g/dL (6.3-8.2)
[2021-01-12 18:19] LABS: Appearance,Urine Clear (Clear); Bilirubin,Urine Negative (Negative); Blood,Urine Negative (Negative); Color,Urine Light Yellow; Glucose,Urine (UA) Negative (Negative); Ketones,Urine Negative (Negative); Leukocyte Esterase,Urine Moderate (Negative); Mucus,Urine Rare /hpf; Nitrite,Urine Negative (Negative); Protein,Urine Negative (Negative); RBC,Urine 1 /hpf (0-5); Specific Gravity,Urine 1.006 (1.001-1.035); Squamous Epithelial Cell,Urine 1 /hpf (0-4); Urobilinogen,Urine <2.0 mg/dL (<2.0); WBC,Urine 11 /hpf (0-5)
--- NOTE | 2021-01-12 18:39 | XR ---
EXAMINATION TYPE: XR chest 2V DATE OF EXAM: 01/12/2021 COMPARISON: 11/13/2018 HISTORY: Chest pain TECHNIQUE: FINDINGS: Heart and mediastinum are normal. Lungs are clear of infiltrate. There is no heart failure. Bony thorax is intact. IMPRESSION: No active cardiopulmonary disease. No change.
[2021-01-12 18:50] LABS: Basophils # (M) 0.09 k/uL (0-0.2); Lymphocytes # (M) 1.31 k/uL (1.0-4.8); Monocytes # (M) 0.63 k/uL (0-1.0); Neutrophils # (M) 2.03 k/uL (1.3-7.7); Neutrophils % (M) 45 %; Nucleated Red Blood Cells 0 /100 WBC (0-0); Total Cells Counted 200
[2021-01-12] MEDS ORDERED: ASPIRIN 81 MG PO STA (18:55)
[2021-01-12] MEDS ORDERED: NITROGLYCERIN SL TABS 0.4 MG TAB SUBLINGUAL PRN ×2 (19:14→19:24)
[2021-01-12] MEDS ORDERED: MELATONIN 5 MG TABLET PO PRN (20:22)
[2021-01-12] MEDS ORDERED: ACETAMINOPHEN TAB 325 MG TAB PO PRN (20:23)
--- NOTE | 2021-01-12 22:25 | P.HPIM ---
History of Present Illness H&P Date: 01/12/21 The patient is a 75-year-old female with a PMH of hypertension, obstructive sleep apnea, hypothyroidism, and GERD and hyperlipidemia who presented to the emergency room with complaints of chest discomfort. The patient reports that she noticed mild substernal discomfort shortly after waking up this morning. She reports that the pain was maybe a 1-2 out of 10, and that she did not pay much attention to it. The pain then worsened acutely 2 hours prior to arrival, 5 out of 10 at maximal intensity, constant, without alleviating or exacerbating features, radiating up to his neck. At time of interview, the patient reports that she continues to have 1 out of 10 substernal discomfort. She denied experiencing associated shortness of breath, nausea, dizziness, or diaphoresis. She denied lower extremity edema or pain. Also denied prolonged immobilization or recent travel. Further denied fever, chills, cough, abdominal pain, diarrhea. Denied weakness, numbness, tingling, headaches. She underwent an extensive evaluation in the emergency room with an EKG showing sinus rhythm with first-degree AV block at 61 bpm. Chest x-ray was unremarkable. Laboratory evaluation revealed a troponin of less than 0.012. Review of systems: Pertinent positives and negatives as discussed in HPI, a complete review of systems was performed and all other systems are negative. Physical examination: General: non toxic, no distress, appears at stated age, obese Derm: no unusual rashes/lesions no unusual ecchymoses, warm, dry Head: atraumatic, normocephalic, symmetric Eyes: EOMI, no lid lag, anicteric sclera, pupils equal round reactive to light ENT: Nose and ears atraumatic, no thrush, no pharyngeal erythema Neck: No thyromegaly, no cervical lymphadenopathy, trachea midline, supple Mouth: no lip lesion, mucus membranes moist Cardiovascular: S1S2 reg, no murmur, positive posterior tibial pulse bilateral, no edema, capillary refill less than 2 seconds, no chest wall tenderness Lungs: CTA bilateral, no rhonchi, no rales , no accessory muscle use Abdominal: soft, nontender to palpation, no guarding, no appreciable organomegaly, normal bowel sounds Ext: no gross muscle atrophy, muscle strength 5 out of 5 in all 4 extremities grossly, no contractures, Neuro: CN II-XI grossly intact, light touch intact all 4 extremities, finger to nose within normal limits, Psych: Alert, oriented, appropriate affect Assessment/plan Atypical Chest pain, rule out ACS -Cardiology consult -Trend troponin -Cardiac monitoring -Continue with aspirin Chronic conditions: Hypertension, hyperlipidemia, GERD -Continue with home meds DVT prophylaxis -Heparin subq The patient is admitted with an anticipated less than 2 midnight stay for evaluation of chest pain. CODE STATUS:Full Code Discussed with: Patient Anticipated discharge date: in am Anticipated discharge place: Home Past Medical History Past Medical History: Eye Disorder, GERD/Reflux, Hyperlipidemia, Hypertension, Osteoarthritis (OA), Sleep Apnea/CPAP/BIPAP, Thyroid Disorder Additional Past Medical History / Comment(s): Hx Diverticulitis, CPAP use, right acoustic neuroma, low thyroid. right cataract sx. Osteoporosis status post greater than 5 years use of Fosamax in the past. PAST MECHANIC HISTORY: She has no history of STDs. History of Any Multi-Drug Resistant Organisms: None Reported Past Surgical History: Cholecystectomy, Hernia Repair, Orthopedic Surgery Additional Past Surgical History / Comment(s): Bilateral total knee and hip replacements, right cataract removal, colonoscopies with colon and anal polyp removal. Last colonoscopy 2017(next after 5yrs). Inguinal and umbilical hernia repairs. Past Anesthesia/Blood Transfusion Reactions: Postoperative Nausea & Vomiting (PONV) Past Psychological History: No Psychological Hx Reported Smoking Status: Never smoker Past Alcohol Use History: Occasional Past Drug Use History: None Reported - Past Family History Mother Family Medical History: Cancer Additional Family Medical History / Comment(s): Cervical or uterine cancer with metastases to liver. Father Family Medical History: CVA/TIA, Myocardial Infarction ([place]) Brother(s) Family Medical History: Diabetes Mellitus Medications and Allergies Home Medications Medication Instructions Recorded Confirmed Type Metoprolol Succinate (ER) [Toprol 25 mg PO DAILY 10/26/13 01/12/21 History XL] Cholecalciferol (Vitamin D3) 50 mcg PO DAILY 11/19/17 01/12/21 History [Vitamin D3] Omeprazole 20 mg PO DAILY 11/19/17 01/12/21 History Ascorbic Acid [Vitamin C] 1,000 mg PO DAILY 11/13/18 01/12/21 History Docusate [Colace] 100 mg PO DAILY 11/13/18 01/12/21 History Zinc 50 mg PO HS 11/13/18 01/12/21 History lisinopriL [Zestril] 20 mg PO HS 11/13/18 01/12/21 History Azelastine HCl 1 spray EA NOSTRIL BID 01/12/21 01/12/21 History Cetirizine HCl 10 mg PO HS 01/12/21 01/12/21 History Prevagen 1 cap PO DAILY 01/12/21 01/12/21 History Allergies Allergy/AdvReac Type Severity Reaction Status Date / Time hydrocodone [From Lortab] AdvReac Nausea & Verified 01/12/21 18:29 Vomiting Physical Exam Vitals: Vital Signs Temp Pulse Resp BP Pulse Ox 01/12/21 20:00 58 L 17 138/78 01/12/21 19:00 63 39 H 01/12/21 18:00 80 35 H 01/12/21 17:28 70 16 01/12/21 17:17 98.1 F 68 20 169/89 94 L Intake and Output 01/12/21 01/12/21 01/12/21 06:59 14:59 22:59 Other: Weight 90.718 kg Results CBC & Chem 7: 01/12/21 17:50 01/12/21 17:50 Labs: Abnormal Lab Results - Last 24 Hours (Table) 01/12/21 01/12/21 Range/Units 17:50 17:50 Sodium 133 L (137-145) mmol/L Creatinine 0.41 L (0.52-1.04) mg/dL Total Protein 6.2 L (6.3-8.2) g/dL Ur Leukocyte Esterase Moderate H (Negative) Urine WBC 11 H (0-5) /hpf Urine Mucus Rare H (None) /hpf
[2021-01-13] MEDS: HEPARIN SODIUM,PORCINE/PF 5,000 UNIT/0.5 ML SYRINGE SQ SCH ×3 (01:47→17:02)
[2021-01-13] MEDS ORDERED: ASCORBIC ACID 500 MG TAB PO SCH (09:00)
[2021-01-13] MEDS ORDERED: AZELASTINE 137MCG/SPRAY EA NOSTRIL SCH (09:00)
[2021-01-13] MEDS ORDERED: DOCUSATE 100 MG CAP PO SCH (09:00)
[2021-01-13] MEDS ORDERED: METOPROLOL SUCCINATE (ER) 25 MG TAB.ER.24H PO SCH (09:00)
[2021-01-13] MEDS ORDERED: CHOLECALCIFEROL 25 MCG (1000 IU) TABLET PO SCH (09:00)
[2021-01-13] MEDS ORDERED: NON FORMULARY DRUG (Prevagen 1 CAP) PO SCH (09:00)
[2021-01-13] MEDS ORDERED: ASPIRIN 325 MG TAB PO SCH (09:00)
[2021-01-13] MEDS ORDERED: PANTOPRAZOLE 40 MG TABLET PO SCH (09:00)
[2021-01-13] MEDS ORDERED: REGADENOSON 0.4 MG/5 ML SYRINGE IV PRN (09:27)
[2021-01-13] MEDS ORDERED: AMINOPHYLLINE 500 MG/20 ML VIAL IV PRN (09:27)
[2021-01-13] MEDS ORDERED: CAFFEINE CITRATE 60 MG/3 ML VIAL IV PRN (09:27)
--- NOTE | 2021-01-13 09:50 | CONS ---
CONSULTATION HISTORY OF PRESENT ILLNESS: Mrs. Mullins is a 75-year-old female with known history of hypertension, history of hyperlipidemia, who presented to the emergency room with symptoms of chest discomfort. She had some discomfort yesterday and subsequently while sitting, she had chest heaviness and radiating to the back of the neck. It occurred at rest and was on and off three times, each one lasting for 15-30 minutes. Because of that, she came into the emergency room to be further evaluated. The patient is average in exercise tolerance, has no history of obstructive coronary disease or congestive heart failure. She has been followed by Dr. Clay on a regular basis. She has underwent a myocardial perfusion imaging in November 2018 and at that time there was no evidence of stress-induced ischemia. The patient has no dizziness. No palpitation. No clear PND, orthopnea, or peripheral edema. Her coronary risk factors are remarkable for the history of hypertension, hyperlipidemia. She is nonsmoker. MEDICATIONS: Include Zestril 20 mg daily, omeprazole 20 mg daily, metoprolol succinate 25 mg daily, , and vitamin C. REVIEW OF SYSTEMS: RESPIRATORY SYSTEM: She has no documented history of asthma, emphysema. She has occasional cough. GI system: No recent GI bleeding. No peptic ulcer disease. system: No dysuria or hematuria. NERVOUS SYSTEM: No history of stroke or seizure. PHYSICAL EXAMINATION: 75-year-old female, alert, oriented, in no apparent distress. Blood pressure 122/70 with a heart rate in the 60s. HEAD: Normocephalic. Eyes sclerae anicteric. NECK: Good carotid upstroke. No bruit. No jugular venous distention. LUNGS: Clear to auscultation. HEART: Regular rate and rhythm. S1, S2. No S3 with systolic murmur, ejection type heard at the base with an early diastolic murmur. No rub. ABDOMEN: Soft, nontender. Positive bowel sounds. No organomegaly. EXTREMITIES: No edema. Intact distal pulses. LAB DATA: Lab data revealed troponin less than 0.012 for 3 samples. BUN and creatinine of 11 and 0.41, hemoglobin of 14.1. EKG revealed a sinus mechanism with a normal axis, first- degree AV block. No acute changes. IMPRESSION: 1. Chest heaviness of unclear etiology, has atypical features for ischemic heart disease. 2. History of hypertension. 3. History of hyperlipidemia. RECOMMENDATIONS: From the cardiac standpoint, I would recommend to proceed with myocardial perfusion imaging. Patient had a myocardial perfusion imaging done in 2019. At that time, there was no evidence of stress-induced ischemia and her left ventricular systolic function at that time was preserved. Depending on the results of testing, further recommendations will be made. Thank you for this consult. We will follow with you. LUIZL / IJN: [id number] /
[2021-01-13 10:38] LABS: Chol/HDL Ratio 3.08; LDL Cholesterol,Calculated 117.8 mg/dL (0.0-131.0); VLDL Calculation 19.2 mg/dL (5.00-40.00)
[2021-01-13 10:54] VITALS: RESP 16
--- NOTE | 2021-01-13 13:43 | ECHOF ---
Referral Reason:CP MEASUREMENTS -------- HEIGHT: 165.1 cm WEIGHT: 90.7 kg BP: 122/74 RVIDd: 3.2 cm (< 3.3) IVSd: 1.3 cm (0.6 - 1.1) LVIDd: 3.7 cm (3.9 - 5.3) LVPWd: 1.1 cm (0.6 - 1.1) IVSs: 1.7 cm LVIDs: 2.5 cm LVPWs: 1.4 cm LA Diam: 3.8 cm (2.7 - 3.8) Ao Diam: 2.8 cm (2.0 - 3.7) AV Cusp: 2.0 cm (1.5 - 2.6) MV EXCURSION: 11.063 mm (> 18.000) MV EF SLOPE: 50 mm/s (70 - 150) EPSS: 0.3 cm MV E Figueroa: 1.14 m/s MV DecT: 201 ms MV A Figueroa: 0.93 m/s MV E/A Ratio: 1.22 FINDINGS -------- Sinus rhythm. This was a technically adequate study. The left ventricular size is normal. There is mild concentric left ventricular hypertrophy. Overa ll left ventricular systolic function is normal with, an EF between 55 - 60 %. The right ventricle is normal in size. The left atrium is normal in size. The right atrial size is normal. Interatrial and interventricular septum intact. There is mild aortic valve sclerosis. Mild mitral annular calcification present. Mild mitral regurgitation is present. The tricuspid valve appears structurally normal. Trace tricuspid regurgitation present. Unable to estimate RVSP due to inadequate TR jet spectral doppler profile. Trace/mild (physiologic) pulmonic regurgitation. The aortic root size is normal. Normal inferior vena cava with normal inspiratory collapse consistent with estimated right atrial pre ssure of 5 mmHg. There is no pericardial effusion. CONCLUSIONS -------- 1. There is mild concentric left ventricular hypertrophy. 2. Overall left ventricular systolic function is normal with, an EF between 55 - 60 %. 3. The left atrium is normal in size. 4. There is mild aortic valve sclerosis. 5. Mild mitral annular calcification present. 6. Mild mitral regurgitation is present. 7. Trace/mild (physiologic) pulmonic regurgitation. 8. There is no pericardial effusion. CAN LINE OPERATOR: Katiuska Gonzalez RDCS
[2021-01-13 14:52] VITALS: BP 137/79; PULSE 62; TEMP 97.4
--- NOTE | 2021-01-13 14:52 | NM ---
EXAMINATION TYPE: NM stress lexiscan cardiolite DATE OF EXAM: 01/13/2021 COMPARISON: 11/15/2018 HISTORY: Chest pain TECHNIQUE: After the intravenous administration of 9.2 mCi Tc 99m Sestamibi - Cardiolite resting SPE CT images acquired 45 minutes post injection. At peak stress 24.8 mCi Tc 99m Sestamibi - Stress images obtained 30 minutes post injection The patient was stressed with 0.4mg Lexiscan. FINDINGS: No fixed defects are evident No reversible stress defects on Spect images. Wall motion is normal. Ejection fraction is calculated to be 66 %. IMPRESSION: 1. Normal stress myocardial study. 2 no stress-induced ischemic changes.
--- NOTE | 2021-01-13 16:17 | P.DS ---
Providers Date of admission: 01/12/21 19:10 Expected date of discharge: 01/13/21 Attending physician: Elias Mcclendon MD Consults: 01/12/21 19:24 Consult Physician Urgent Consulting Provider: José Luis Clay Consult Reason/Comments: ua Do you want consulting provider notified?: Yes, Notify in am Primary care physician: Marina Wakefield MD Hospital Course: This is a 75-year-old female with past medical history significant for essential hypertension and hyperlipidemia who presented to the emergency room with chest discomfort. Patient was evaluated in the ER and twelve-lead EKG showed no acute ischemic changes. She was placed on observation and serial troponin remained negative 3 sets. ACS was ruled out. Patient was seen and evaluated by cardiology. She underwent a Lexiscan cardiac stress test that was normal. She was cleared by cardiology for discharge. She was seen and evaluated by me on the day of discharge. She was chest pain-free. She'll be discharged home in a stable condition. General: The patient is awake and alert, in no distress Eye: there is normal conjunctiva bilaterally. Neck: The neck is supple, there is no JVD. Cardiovascular: Normal S1-S2, no S3-S4, no murmurs. Respiratory: Lungs clear to auscultation bilaterally Gastrointestinal: Abdomen is soft, nontender Musculoskeletal: There is no pedal edema. Neurological:. Speech is normal. Skin: Skin is warm and dry Patient Condition at Discharge: Fair Plan - Discharge Summary Discharge Rx Participant: No New Discharge Prescriptions: Continue Metoprolol Succinate (ER) [Toprol XL] 25 mg PO DAILY Omeprazole 20 mg PO DAILY Cholecalciferol (Vitamin D3) [Vitamin D3] 50 mcg PO DAILY Docusate [Colace] 100 mg PO DAILY Ascorbic Acid [Vitamin C] 1,000 mg PO DAILY Zinc 50 mg PO HS lisinopriL [Zestril] 20 mg PO HS Azelastine HCl 1 spray EA NOSTRIL BID Cetirizine HCl 10 mg PO HS Prevagen 1 cap PO DAILY Discharge Medication List Metoprolol Succinate (ER) [Toprol XL] 25 mg PO DAILY 10/26/13 [History] Cholecalciferol (Vitamin D3) [Vitamin D3] 50 mcg PO DAILY 11/19/17 [History] Omeprazole 20 mg PO DAILY 11/19/17 [History] Ascorbic Acid [Vitamin C] 1,000 mg PO DAILY 11/13/18 [History] Docusate [Colace] 100 mg PO DAILY 11/13/18 [History] Zinc 50 mg PO HS 11/13/18 [History] lisinopriL [Zestril] 20 mg PO HS 11/13/18 [History] Azelastine HCl 1 spray EA NOSTRIL BID 01/12/21 [History] Cetirizine HCl 10 mg PO HS 01/12/21 [History] Prevagen 1 cap PO DAILY 01/12/21 [History] Follow up Appointment(s)/Referral(s): Marina Wakefield MD [Primary Care Provider] - 1-2 days Discharge Disposition: HOME SELF-CARE
--- NOTE | 2021-01-13 16:37 | EST ---
EXERCISE STRESS AGE: 75 SEX: F HT: 5'5" WT: 200 lbs. PROTOCOL: Lexiscan STAGE: NA DURATION OF EXERCISE: NA HEART RATE REST: 58 BLOOD PRESSURE REST: 128/79 MAXIMUM HEART RATE ACHIEVED: 89 MAXIMUM BLOOD PRESSURE: 144/69 85% MPHR: 122 100% MPHR: 143 METS: NA INDICATIONS: Chest pain CLINICAL INFORMATION: Baseline rhythm is sinus mechanism, rate 58, normal axis and intervals. Normal echocardiogram. Baseline blood pressure 128/79 mmHg. Patient received injection of Lexiscan. Electrocardiograph monitoring revealed a [address]-segment depression. Cardiolite was injected per protocol. CONCLUSION: 1. Borderline positive electrocardiograph response to Lexiscan infusion. 2. Nuclear images will be reported separately. MMODL / IJN: [id number] /
[2021-01-13] MEDS ORDERED: LORATADINE 10 MG TAB PO SCH (21:00)
[2021-01-13] MEDS ORDERED: lisinopriL 20 MG TAB PO SCH (21:00)
[2021-01-13] MEDS ORDERED: ZINC SULFATE 220 MG CAP PO SCH (21:00)
[2021-01-14] MEDS ORDERED: ASPIRIN 81 MG PO SCH (09:00)
== END 2021-01-13 17:00 | disposition home or self-care (01) ==
LOC: EC 17:10 → 1SOBS 19:10 → 6NMEDSUR 20:51
PROVIDERS: ADMIT Internal Medicine; ATTEND Internal Medicine
DX: R07.89 Other chest pain (principal); I10 Essential (primary) hypertension; I44.30 Unspecified atrioventricular block; I08.0 Rheumatic disorders of both mitral and aortic valves; R10.13 Epigastric pain; R51.9 Headache, unspecified; E78.5 Hyperlipidemia, unspecified; E03.9 Hypothyroidism, unspecified; G47.33 Obstructive sleep apnea (adult) (pediatric); D33.3 Benign neoplasm of cranial nerves; K21.9 Gastro-esophageal reflux disease without esophagitis; M19.90 Unspecified osteoarthritis, unspecified site; K57.90 Diverticulosis of intestine, part unspecified, without perforation or abscess without bleeding; M81.0 Age-related osteoporosis without current pathological fracture; Z79.899 Other long term (current) drug therapy; Z88.5 Allergy status to narcotic agent; Z96.643 Presence of artificial hip joint, bilateral; Z96.653 Presence of artificial knee joint, bilateral; Z86.010 Personal history of colon polyps; Z87.19 Personal history of other diseases of the digestive system; Z90.49 Acquired absence of other specified parts of digestive tract; Z98.41 Cataract extraction status, right eye; Z98.890 Other specified postprocedural states; Z80.49 Family history of malignant neoplasm of other genital organs; Z82.49 Family history of ischemic heart disease and other diseases of the circulatory system; Z83.3 Family history of diabetes mellitus; Z82.3 Family history of stroke
CPT/HCPCS: 96372; 99285; 36415; 93005 ×2; 93017; 93306; 80061; 80053; 83735; 84484 ×2; 85025; 85610; 85730; 81001; 87086; 71046; 78452; G0378 ×3; A9500; J2785; J1644

== ENCOUNTER → 2021-12-08 | Outpatient (CLI) | payer MEDICARE ==
--- NOTE | 2021-12-08 12:38 | P.PN ---
Subjective DATE: 12/08/2021 FOLLOW UP VISIT. Patient with obstructive sleep apnea hypopnea syndrome return to sleep center for follow-up visit. Patient is using PAP equipment every night for the whole night, getting PAP supplies in time. The patient does not have significant problems with the mask, PAP unit and humidification. [place] sleepiness scale is 3. I checked PAP unit. PAP unit pressure 5-12, average 10 cm H2O. Usage is 100 % for more then 4 hours, average 7.6 hours per night. Leak is 14 l/m, which is in acceptable range. Apnea Hypopnea Index is 0.6, which is normal. MEDICATIONS:1. Lisinopril 20 mg once a day 2. Toprol 25 mg once a day 3. Omeprazole 20 mg on when necessary basis 4. Prolia twice a year During physical exam: GENERAL: A pleasant patient without any distress. VITAL SIGNS: BP 173/74, HR 68, RR 12, weight 194.6, temperature 97.4, height 5 foot 6 inches, body mass index 32.2, oxygen saturation at room air 97%. HEENT: PERRLA, EOMI.low position of soft palate, Mallapati 34. NECK: Supple. No JVD. LUNGS: Clear to percussion and to auscultation. Good air exchange. No wheezing or rhonchi. HEART: S1, S2 regular. ABDOMEN: Soft and nontender.[] EXTREMITIES: No clubbing or cyanosis. NEON PUMPER: Awake, alert, and oriented x3. No focal deficit. Impressions: 1. Obstructive sleep apnea-hypopnea syndrome. Patient demonstrated great compliance with treatment, benefiting from treatment. 2. Hypertension. 3. Obesity patient lost 14 pounds since previous visit. 4. Hyperlipidemia. 5. Acid reflux. 6. History of ALLERGY. 7. Status post bilateral knee replacement. 8. Status post bilateral heap replacement. 9. Status post cholecystectomy. 10 history of periodic limb movements, no clinical symptoms at the present time 11. Status post hernia repair. Plan: 1. Continue using PAP equipment every night for the whole night. 2. To change air filter at least 1-2 times per month. 3. PAP unit should stay lower then position of the head. 4. Advised patient to remove all remaining water from humidifier canister daily and make it dry after each usage. Refill canister with fresh distilled water before each usage. 5. Sleep hygiene with regular time in bed for at least 8 hours. 6. Precautions related to driving. No driving if feel any sleepiness. 7. I will maintain prescription for PAP supplies including mask, tube, filters. 8. Follow up visit in 12 months or earlier if patient has any problems. 9. Watching weight. Thank you very much for allowing me to participate in the management of your patient. Arash Brady MD, PhD, FAASM. Diplomat of [place] [employer], Sleep Medicine Board by [employer] [facility] [place]
== END ==
LOC: SLEEP 11:23
PROVIDERS: ATTEND Internal Medicine
DX: G47.33 Obstructive sleep apnea (adult) (pediatric) (principal); I10 Essential (primary) hypertension; E66.9 Obesity, unspecified; E78.5 Hyperlipidemia, unspecified; K21.9 Gastro-esophageal reflux disease without esophagitis; Z87.09 Personal history of other diseases of the respiratory system; Z96.653 Presence of artificial knee joint, bilateral; Z96.643 Presence of artificial hip joint, bilateral; Z90.49 Acquired absence of other specified parts of digestive tract; Z98.890 Other specified postprocedural states; G47.61 Periodic limb movement disorder; Z68.32 Body mass index [BMI] 32.0-32.9, adult; Z79.899 Other long term (current) drug therapy; Z88.5 Allergy status to narcotic agent

== ENCOUNTER 2021-12-21 10:18 | Day surgery (SDC) | payer MEDICARE ==
[2021-12-19 12:28] VITALS: BMI 31.6
--- NOTE | 2021-12-21 07:41 | P.GSHP ---
History of Present Illness H&P Date: 12/21/21 CHIEF COMPLAINT: GERD and colon screen HISTORY OF PRESENT ILLNESS: The patient is a 76-year-old female who presents with gastroesophageal reflux disease and need for colon screen. Upper and lower endoscopy were offered for further evaluation and management. PAST MEDICAL HISTORY: Please see list. PAST SURGICAL HISTORY: Please see list. MEDICATIONS: Please see list. ALLERGIES: Please see list. SOCIAL HISTORY: No illicit drug use FAMILY HISTORY: No reports of Crohn disease or ulcerative colitis. REVIEW OF ORGAN SYSTEMS: CONSTITUTIONAL: No reports of fevers or chills. GI: Denies any blood in stools or constipation. PHYSICAL EXAM: VITAL SIGNS: Stable GENERAL: Well-developed pleasant in no acute distress. HEENT: No scleral icterus. Extraocular movements grossly intact. Moist buccal mucosa. NECK: Supple without lymphadenopathy. CHEST: Unlabored respirations. Equal bilateral excursions. CARDIOVASCULAR: Regular rate and rhythm. Distal 2+ pulses. ABDOMEN: Soft, nondistended. MUSCULOSKELETAL: No clubbing, cyanosis, or edema. ASSESSMENT: 1. Gastroesophageal reflux disease 2. Colon screen. PLAN: 1. Recommend proceeding with an upper and lower endoscopy Past Medical History Past Medical History: Eye Disorder, GERD/Reflux, Hyperlipidemia, Hypertension, Osteoarthritis (OA), Sleep Apnea/CPAP/BIPAP, Thyroid Disorder Additional Past Medical History / Comment(s): Hx Diverticulitis, CPAP use, right acoustic neuroma, low thyroid. Osteoporosis. History of Any Multi-Drug Resistant Organisms: None Reported Past Surgical History: Cholecystectomy, Hernia Repair, Orthopedic Surgery Additional Past Surgical History / Comment(s): Bilateral total knee and hip replacements, right cataract removal, colonoscopies with colon and anal polyp removal. Inguinal and umbilical hernia repairs. Past Anesthesia/Blood Transfusion Reactions: Postoperative Nausea & Vomiting (PONV) Past Psychological History: Anxiety Smoking Status: Never smoker Past Alcohol Use History: Occasional Past Drug Use History: None Reported - Past Family History Mother Family Medical History: Cancer Additional Family Medical History / Comment(s): Cervical or uterine cancer with metastases to liver. Father Family Medical History: CVA/TIA, Myocardial Infarction ([place]) Brother(s) Family Medical History: Diabetes Mellitus Medications and Allergies Home Medications Medication Instructions Recorded Confirmed Type Metoprolol Succinate (ER) [Toprol 50 mg PO DAILY 10/26/13 12/19/21 History XL] Cholecalciferol (Vitamin D3) 50 mcg PO DAILY 11/19/17 12/19/21 History [Vitamin D3] Omeprazole 20 mg PO DAILY PRN 11/19/17 12/19/21 History Ascorbic Acid [Vitamin C] 1,000 mg PO DAILY 11/13/18 12/19/21 History Zinc 50 mg PO HS 11/13/18 12/19/21 History lisinopriL [Zestril] 20 mg PO HS 11/13/18 12/19/21 History Prevagen 1 cap PO DAILY 01/12/21 12/19/21 History Denosumab [Prolia] 120 mg SQ DIRECTED 12/19/21 12/19/21 History hydrOXYzine HCL [Hydroxyzine HCl] 10 mg PO DAILY 12/19/21 12/19/21 History Allergies Allergy/AdvReac Type Severity Reaction Status Date / Time hydrocodone [From Lortab] AdvReac Nausea & Verified 12/19/21 12:18 Vomiting
[~2021-12-21 10:18] MED LIST changes: -LIDOCAINE 1% 20 ML VIAL (10MG/ML) FOR IV START INTRADERMA PRN; -MIDAZOLAM 2 MG/2 ML VIAL IV PRN
[2021-12-21 10:39] VITALS: TEMP 98.5
[2021-12-21] MEDS ORDERED: PROPOFOL 10 MG/ML 20 ML VIAL IV ONE (11:20)
[2021-12-21] MEDS ORDERED: LIDOCAINE 2% INJ 20 MG/ML (2 ML VIAL) ONE (11:20)
--- NOTE | 2021-12-21 11:36 | P.PCN ---
Date of Procedure: 12/21/21 Description of Procedure: PREOPERATIVE DIAGNOSIS: Gastroesophageal reflux disease. POSTOPERATIVE DIAGNOSIS: Gastroesophageal reflux disease. Gastritis. OPERATION: Esophagogastroduodenoscopy with biopsies along antrum. SURGEON: Jackeline Griffiths MD ANESTHESIA: MAC. INDICATIONS: The patient is a 76-year-old female who presents with reflux disease. Benefits and risks of the procedure were described. Informed consent was obtained. DESCRIPTION: The patient was brought into the endoscopy suite and laid in the left lateral decubitus position. An Olympus gastroscope was passed along the posterior oropharynx down to the distal esophagus where the squamocolumnar junction was encountered at 35 cm from the incisors. The stomach was entered and no bile reflux was found. Additional findings are listed below. Biopsies with cold forceps were obtained of the antrum. The first through third portion of the duodenum was examined. Retroflexion of the scope confirmed Hill grade 2 lower esophageal valve. The squamocolumnar junction demonstrated LA grade B erosive esophagitis. The stomach was desufflated. The patient tolerated the procedure well. FINDINGS: Squamocolumnar junction 36 cm from the incisors. Diaphragmatic hiatus at 36 cm. Hill grade 2 lower esophageal valve. LA grade B erosive esophagitis. Biopsies obtained duodenal Chronic gastritis. Biopsies obtained RECOMMENDATIONS: Upper endoscopy as needed.
--- NOTE | 2021-12-21 12:01 | P.PCN ---
Date of Procedure: 12/21/21 Description of Procedure: PREOPERATIVE DIAGNOSIS: Personal history of colon polyps POSTOPERATIVE DIAGNOSIS: Personal history of colon polyps OPERATION: Colonoscopy to the cecum, ileocecal valve and appendiceal orifice. SURGEON: Jackeline Griffiths MD. ANESTHESIA: MAC. INDICATIONS: The patient is a 76-year-old female who presents with history of colon polyps. Last colonoscopy 5 years ago. Benefits and risks were described and informed consent was obtained. DESCRIPTION OF PROCEDURE: The patient had undergone Sutab prep. The patient had been brought into the operating room and laid in the left lateral decubitus position. After adequate intravenous sedation, the rectum was examined with 2% lidocaine jelly. No external hemorrhoids were encountered. The rectal tone was within normal limits. No lesions were palpated in the rectal vault. An Olympus colonoscope was advanced until the cecum, ileocecal valve and appendiceal orifice were clearly viewed. The prep was excellent. No scattered diverticulosis was encountered. No colonic polyps were found. No evidence of focal colitis was found. Re troflexion of the scope demonstrated grade 1 internal hemorrhoids without active bleeding or inflammation. The colon was desufflated. The patient had tolerated the procedure well. Withdrawal time was over 6 minutes. FINDINGS: [place] preparation quality scale 1 (1-5) Internal hemorrhoids, grade 1 No external prolapsed hemorrhoids. No arteriovenous malformations. No adenomatous polyps. No focal colitis. Redundant sigmoid colon RECOMMENDATIONS: Lower endoscopy in 5 years, 2026 Plan - Discharge Summary Discharge Rx Participant: No New Discharge Prescriptions: Continue Metoprolol Succinate (ER) [Toprol XL] 50 mg PO DAILY Omeprazole 20 mg PO DAILY PRN PRN Reason: Heartburn Cholecalciferol (Vitamin D3) [Vitamin D3] 50 mcg PO DAILY Ascorbic Acid [Vitamin C] 1,000 mg PO DAILY Zinc 50 mg PO HS lisinopriL [Zestril] 20 mg PO HS Prevagen 1 cap PO DAILY Denosumab [Prolia] 120 mg SQ DIRECTED hydrOXYzine HCL 10 mg PO DAILY Discharge Medication List Metoprolol Succinate (ER) [Toprol XL] 50 mg PO DAILY 10/26/13 [History] Cholecalciferol (Vitamin D3) [Vitamin D3] 50 mcg PO DAILY 11/19/17 [History] Omeprazole 20 mg PO DAILY PRN 11/19/17 [History] Ascorbic Acid [Vitamin C] 1,000 mg PO DAILY 11/13/18 [History] Zinc 50 mg PO HS 11/13/18 [History] lisinopriL [Zestril] 20 mg PO HS 11/13/18 [History] Prevagen 1 cap PO DAILY 01/12/21 [History] Denosumab [Prolia] 120 mg SQ DIRECTED 12/19/21 [History] hydrOXYzine HCL 10 mg PO DAILY 12/19/21 [History] Follow up Appointment(s)/Referral(s): Jackeline Griffiths MD [STAFF PHYSICIAN] - 01/03/22 Patient Instructions/Handouts: *Surgery [facility] - (Anesthesia) Endoscopy Discharge Instructions, Colonoscopy (DC) Activity/Diet/Wound Care/Special Instructions: Repeat colonoscopy in 5 years, 2026 Discharge Disposition: HOME SELF-CARE
[2021-12-21 12:07] VITALS: BP 138/77; PULSE 56; RESP 14
== END 2021-12-21 12:21 | disposition home or self-care (01) ==
LOC: ORWHC2ENDO 10:18
PROVIDERS: ATTEND Surgery Plastic and Reconstructive Surgery
DX: Z12.11 Encounter for screening for malignant neoplasm of colon (principal); Z86.010 Personal history of colon polyps; K29.50 Unspecified chronic gastritis without bleeding; K64.0 First degree hemorrhoids; Q43.8 Other specified congenital malformations of intestine; K22.10 Ulcer of esophagus without bleeding; K21.9 Gastro-esophageal reflux disease without esophagitis; E78.5 Hyperlipidemia, unspecified; I10 Essential (primary) hypertension; M19.90 Unspecified osteoarthritis, unspecified site; H57.9 Unspecified disorder of eye and adnexa; G47.30 Sleep apnea, unspecified; D33.3 Benign neoplasm of cranial nerves; E03.9 Hypothyroidism, unspecified; M81.0 Age-related osteoporosis without current pathological fracture; Z87.19 Personal history of other diseases of the digestive system; Z90.49 Acquired absence of other specified parts of digestive tract; Z96.653 Presence of artificial knee joint, bilateral; Z96.643 Presence of artificial hip joint, bilateral; Z98.41 Cataract extraction status, right eye; Z98.890 Other specified postprocedural states; F41.9 Anxiety disorder, unspecified; Z80.49 Family history of malignant neoplasm of other genital organs; Z80.0 Family history of malignant neoplasm of digestive organs; Z83.3 Family history of diabetes mellitus; Z82.49 Family history of ischemic heart disease and other diseases of the circulatory system; Z79.899 Other long term (current) drug therapy; Z88.5 Allergy status to narcotic agent
CPT/HCPCS: 88305; 43239; J2704; J2001; G0105; 45378

== ENCOUNTER → 2022-11-30 | Outpatient (CLI) | payer MEDICARE ==
--- NOTE | 2022-11-30 11:11 | P.PN ---
Subjective DATE: 11/30/2022 FOLLOW UP VISIT. Patient with obstructive sleep apnea hypopnea syndrome return to sleep center for follow-up visit. Information from previous visit have been reviewed. Patient is using PAP equipment every night for the whole night, getting PAP supplies in time. The patient does not have significant problems with the mask, PAP unit and humidification. [place] sleepiness scale is 5, which is normal. I checked information from PAP unit. PAP unit pressure 5-12, average 10.8 cm H2O. Usage is 100 % for more then 4 hours, average 6.9 hours per night. Leak is 19 l/m, which is in acceptable range. Apnea Hypopnea Index is 0.7, which is normal. MEDICATIONS:1. Lisinopril 25 mg once a day 2. Metoprolol 50 mg once a day 3. Omeprazole 20 mg on when necessary basis 4. Levothyroxine 50 g once a day During physical exam: GENERAL: A pleasant patient without any distress. VITAL SIGNS: BP 178/75, HR 73, RR 16, weight 190, temperature 98.3, oxygen saturation at room air 95 % . HEENT: PERRLA, EOMI.low position of soft palate, [place] 3-4 . NECK: Supple. No JVD. LUNGS: Clear to percussion and to auscultation. Good air exchange. No wheezing or rhonchi. HEART: S1, S2 regular. ABDOMEN: Soft and nontender.[] EXTREMITIES: No clubbing or cyanosis. 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 No focal deficit. Impressions: 1. Obstructive sleep apnea-hypopnea syndrome. Patient demonstrated great compliance with treatment, benefiting from treatment. 2. Hypothyroidism. 3. Hypertension. 4. Acid reflux. 5. Hyperlipidemia. 6. History of ALLERGY. 7. History of periodic limb movements, no clinical symptoms at the present time. 8. Status post bilateral knee replacement. 9. Status post bilateral hip replacement. Plan: 1. Continue using PAP equipment every night for the whole night. 2. To change air filter at least 1-2 times per month. 3. PAP unit should stay lower then position of the head. 4. Advised patient to remove all remaining water from humidifier canister daily and make it dry after each usage. Refill canister with fresh distilled water before each usage. 5. Sleep hygiene with regular time in bed for at least 8 hours. 6. Precautions related to driving. No driving if feel any sleepiness. 7. I will maintain prescription for PAP supplies including mask, tube, filters. 8. Watching weight. 9. Follow up visit in 6 months or earlier if patient has any problems. Thank you very much for allowing me to participate in the management of your patient. Arash Brady MD, PhD, FAASM. Diplomat of [place] [employer], Sleep Medicine Board by [place] [employer] General Manager [employer] [facility] [place]
== END ==
LOC: 3 N SLEEP 10:23
PROVIDERS: ATTEND Internal Medicine
DX: G47.33 Obstructive sleep apnea (adult) (pediatric) (principal); E03.9 Hypothyroidism, unspecified; I10 Essential (primary) hypertension; K21.9 Gastro-esophageal reflux disease without esophagitis; G47.61 Periodic limb movement disorder; E78.5 Hyperlipidemia, unspecified; Z96.653 Presence of artificial knee joint, bilateral; Z96.643 Presence of artificial hip joint, bilateral; Z79.899 Other long term (current) drug therapy; Z79.890 Hormone replacement therapy; Z99.89 Dependence on other enabling machines and devices; Z88.5 Allergy status to narcotic agent
CPT/HCPCS: 99212